=== PATIENT | female | born 1945 | race Caucasian/White ===

== ENCOUNTER → 2022-10-06 09:44 | Outpatient (CLI) | payer OTHER, SELFPAY ==
--- NOTE | ~2022-10-06 | XR_ITS ---
EXAMINATION: XR chest 2V DATE: 10/06/2022 10:03 INDICATION: Chronic cough and shortness of breath post respiratory tract infection 3 months prior TECHNIQUE: frontal and lateral views of the chest were obtained. COMPARISON: None FINDINGS: Mild biapical pleural-parenchymal scarring. Groundglass opacities at the posterior lung bases best ap preciated on the lateral projection. No pleural effusion or pneumothorax. The cardiomediastinal silho uette is normal. Partially 65 degree lumbar levorotoscoliosis mild compensatory thoracic dextroscolio sis. IMPRESSION: 1. Groundglass opacities at the posterior lung bases which could represent atelectasis, mild pulmonar y edema or pneumonia. Reviewed, dictated and finalized at location A. IMPRESSION: 1. Groundglass opacities at the posterior lung bases which could represent atel ectasis, mild pulmonary edema or pneumonia.
== END ==
PROVIDERS: PCP Family Medicine; Visit Provider Family Medicine
DX: R05.3 Chronic cough (principal); R06.02 Shortness of breath; R91.8 Other nonspecific abnormal finding of lung field
CPT/HCPCS: 71046

== ENCOUNTER 2022-10-13 11:06 | Inpatient (IN) | payer OTHER, SELFPAY ==
[2022-10-13] VITALS (52 sets, daily range): BP systolic 87–172; BP diastolic 41–77; PULSE 65–116; RESP 9–28; TEMP 36.4–36.9; O2SAT 97–100; BMI 21.0
--- NOTE | ~2022-10-13 | CT_ITS ---
EXAMINATION: CTA chest PE abdomen pel DATE: 10/13/2022 13:44 INDICATION: Anemia and shortness of breath TECHNIQUE: Computed tomography angiography (CTA) of the chest was performed with 100 mL Omnipaque-350 intravenous contrast timed to evaluate the pulmonary arteries. Subsequent postcontrast images of the abdomen and pelvis are obtained. Coronal maximum intensity projection 3D-reconstructions were create d by the technologist. The dose-length product (DLP) was 381.06 mGy-cm. Automated exposure control an d iterative reconstruction technique were employed. COMPARISON: None. FINDINGS: CTA CHEST: The pulmonary arteries are well-opacified. No pulmonary embolism is identified. There is a 3 mm nodule of the left lung apex. There are dependent groundglass opacities of the lungs. No pleura l effusion or pneumothorax. No pathologically enlarged thoracic lymph nodes are identified. The heart size is normal. There is thoracolumbar levoscoliosis and mild spondylosis. ABDOMEN/PELVIS CT: There is a small sliding hiatal hernia. There is a 12 mm hypoattenuating lesion of the liver dome, likely benign in the absence of known malignancy.. The spleen, pancreas, gallbladder , and adrenal glands are normal. There is a 1.8 cm cyst of the left kidney. The right kidney is unrem arkable. No pathologically enlarged abdominal or pelvic lymph nodes are identified. No free intraperi toneal gas or evidence of bowel obstruction. A moderate volume of colonic stool is present. IMPRESSION: 1. No pulmonary embolus. 2. Dependent groundglass opacities of the lungs which could reflect mild pulmonary edema. 3. No acute findings in the abdomen or pelvis. Reviewed, dictated and finalized at location A. IMPRESSION: 1. No pulmonary embolus. 2. Dependent groundglass opacities of the lungs which could reflect mild pulmon veronica edema. 3. No acute findings in the abdomen or pelvis.
[2022-10-13] MEDS: TUBING, BLOOD PLUM PUMP TUBING 1 EACH XX ×2 (11:46→19:00)
--- NOTE | 2022-10-13 11:58 | ED.RECABL ---
HPI - Recheck/Abnormal Lab/Rx General Chief Complaint: Recheck/Abnormal Lab/Rx Stated Complaint: blood count low/needs transfusion Time Seen by Provider: 10/13/22 11:52 History of Present Illness HPI narrative: Patient is a 77-year-old female with no significant past medical history here with abnormal lab. Patient states that this spring and winter she had 2 separate viral illnesses. Since that time she has had some persistent cough and shortness of breath with occasional blood streaking in her sputum. She notes shortness of breath and fatigue are worse with taking stairs and working out in the yard. She is typically very active doing yard work and going to [employer]. No associated chest pains. She notes that this shortness of breath and fatigue continued longer than she had expected so she went to her primary care doctor a few days ago where lab work was ordered. She additionally had a chest x-ray, stress test and echo ordered. Patient was notified by her primary care doctor's office that an opacification was seen on her chest x-ray and they had reflexed ordering a CT scan for better visualization. The visually noted that she was anemic on her outpatient lab work, unsure of what the number was. Her primary care doctor called her and prompted her to come to the emergency department given her anemia and likely need for transfusion. Patient denies any dark stools or bright red blood per rectum. Her last colonoscopy was in 2013, diverticula were noted but no other findings. She denies any hematuria. Related Data Home Medications Medication Instructions Recorded Confirmed lovastatin 40 mg tablet 40 mg PO QPM 10/13/22 10/13/22 metoprolol succinate 50 mg 50 mg PO QAM 10/13/22 10/13/22 tablet,extended release 24 hr (Toprol XL) Allergies Allergy/AdvReac Type Severity Reaction Status Date / Time Penicillins Allergy Intermediate RASH Verified 10/06/22 09:35 Sulfa (Sulfonamide Allergy Unknown Dizziness Verified 10/06/22 09:35 Antibiotics) Review of Systems Review of Systems: CONSTITUTIONAL: Denies fever, chills, or sweats. Fatigue. EYES: Denies visual changes, redness, or discharge. ENT: Denies rhinorrhea, congestion, sore throat, or otalgia. CARDIOVASCULAR: Denies chest pain, palpitations RESPIRATORY: Denies cough, dyspnea GASTROINTESTINAL: Denies abdominal pain, nausea, vomiting, or diarrhea. No dark stools. GENITOURINARY: Denies dysuria or hematuria. SKIN: Denies rash or itching. MUSCULOSKELETAL: Denies back pain, joint pain, or myalgia. NEUROLOGIC: Denies headache, numbness, or weakness. PSYCHIATRIC: Denies anxiety or depression. [facility] Past Medical History Medical History (Updated 10/13/22 @ 18:50 by Edny Acosta MD) Breast screening declined Post-menopausal Family History Family History Sibling Hypertension Mother Family history of Parkinson's disease Patient's mother is Father Family history of lung cancer Patient's father is Social History Social History Smoking status: Never smoker Second hand tobacco smoke exposure: No Alcohol intake: never Substance use: never Substance use type: does not use Lack of Transportation: No Lack of Food: Never True Current Housing: I Have Housing Concerned About Future Housing: No Difficulty Paying Gas/Electric Bills: No Difficulty Paying for Meds: No Currently Unemployed: No Education: High School Diploma/GED Difficulty w/ Childcare or Family Care: No Spiritual care concerns: No Exam Narrative: GENERAL: Well-appearing, well-nourished, and in no acute distress. HEAD: Normocephalic, atraumatic. EYES: PERRLA and EOMI. Conjunctival pallor. ENT: Nares clear. Mucous membranes moist. NECK: Supple. CHEST: Clear to auscultation. No respiratory distress. HEART: Regular ra
--- NOTE | 2022-10-13 12:32 | ECG_ITS ---
Measurements Intervals [place] Rate: 77 P: 52 [place]: 175 QRS: -13 QRSD: 101 T: 51 QT: 362 QTc: 410 Interpretive Statements SINUS RHYTHM INCOMPLETE RIGHT BUNDLE BRANCH BLOCK [90+ ms QRS DURATION, TERMINAL R IN V1/V2, 40+ ms S IN I/aVL/V4/V5/V6] MODERATE VOLTAGE CRITERIA FOR LVH, CONSIDER NORMAL VARIANT [MEETS CRITERIA IN ONE OF: R(aVL), S(V1), R(V5), R(V5/V6)+S(V1)] NO PREVIOUS ECG AVAILABLE FOR COMPARISON Electronically Signed On 10-13-2022 15:40:35 CDT by Jeannette Abel M.D.
--- NOTE | 2022-10-13 12:35 | IVDEFINITY ---
Prior to administration of IV Definity the patient was educated on the risks and benefits of the imaging enhancing agent including potential adverse side effects. The patient verbalized understanding. Allergies were verified. No exclusion criteria were identified and at least one of the following inclusion criteria were met: 1) physician request, 2) patient technically difficult to image (per the [place] [employer] guidelines of two or more segments not discernable within the apical view), or 3) questionable left ventricular function. ?
[2022-10-13 12:50] LABS: Basophils Percent Auto 0.3 % (0.2-1.2); Eosinophils Percent Auto 0.8 % (0-4.4); Immature Granulocyte Absolute 0.03 K/mm3 (0.00-0.031); Immature Granulocyte Percent A 0.8 % (0-0.5); Immature Platelet Fraction Pct 12.4 % (0.9-11.2); Lymphocytes Absolute Auto 0.59 K/mm3 (0.9-3.2); Mean Corpuscular HGB Conc 27.4 g/dl (32-36); Mean Corpuscular Hemoglobin 25.3 pg (26-34); Mean Corpuscular Volume 92.3 fl (80-100); Monocytes Absolute Auto 0.3 K/mm3 (0.1-0.6); Monocytes Percent Auto 8.7 % (2.6-8.5); Neutrophils Absolute Auto 2.7 K/mm3 (1.3-6.7); Neutrophils Percent Auto 73.4 % (45.5-73.1); Red Blood Count 1.94 M/mm3 (4.2-5.4); Red Cell Distribution Width 19.1 % (11.5-14.5); White Blood Count 3.7 K/mm3 (4.5-10.0)
[2022-10-13 12:58] LABS: Alanine Aminotransferase 18 U/L (6-35); Albumin Level 3.5 g/dL (3.5-5.1); Alkaline Phosphatase 55 U/L (38-126); Anion Gap 0 mmol/L (8-16); Aspartate Amino Transferase 26 U/L (14-36); Bilirubin,Total 0.3 mg/dL (0.2-1.3); Blood Urea Nitrogen 19 mg/dL (7-17); Calcium 8.5 mg/dL (8.4-10.2); Carbon Dioxide 26 mmol/L (22-30); Chloride 106 mmol/L (98-107); Estimated CRCL calculation 39 ml/min; Estimated Glomerular Filt Rate > 60; Glucose 124 mg/dL (65-110); Hematocrit 17.9 % (37.0-47.0); Hemoglobin 4.9 g/dL (12.0-15.0); Magnesium 2.2 mg/dL (1.6-2.3); Sodium 132 mmol/L (137-145)
[2022-10-13 12:59] LABS: Platelet Count Result < 3 k/mm3 (150-375)
[2022-10-13 13:03] LABS: Partial Thromboplastin Time 33.3 SECONDS (22.3-36.8); Prothrombin Time 13.6 Seconds (11.1-14.7)
[2022-10-13 13:09] LABS: NT Pro B Type Natriuretic Pept 386 pg/mL (19.9-100); Troponin I < 0.012 ng/mL (0.000-0.034)
[2022-10-13 13:18] LABS: Hypochromasia 3+ (NORMAL); Microcytosis 3+ (NORMAL); Platelet Estimate Decreased (Adequate)
[2022-10-13 13:19] LABS: Schistocytes Rare (NORMAL); Target Cells 1+ (NORMAL)
--- NOTE | 2022-10-13 14:38 | PC.NURSE ---
Spoke with Castro in [facility] and he states the blood is not ready at this time. 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
[2022-10-13 14:49] LABS: Iron 26 ug/dL (37-170)
[2022-10-13 14:59] LABS: Percent Iron Saturation 6 % (20-50)
[2022-10-13] MEDS: PANTOPRAZOLE SODIUM IV 40 MG VIAL 80 MG IV PUSH (15:24)
--- NOTE | 2022-10-13 16:43 | ADMGEN ---
This patient, Helga Whitley, was admitted to 2 Medical Room 259-01. Patient/family oriented to hospital policies and general routines including ID bracelet, bed and alarms, visiting hours, pain management, procedures, bathroom and other care routines, personal items, smoking policy, room service/diet, and visiting hours. Information on how to activate the Rapid Response Team has been discussed. Patient/Family are encouraged to report perceived risks to care and to ask questions if they do not understand what they are told or what they should do.
--- NOTE | 2022-10-13 16:45 | PM.IMHP ---
H&P: HPI History of Present Illness Date/Time: 10/13/22 16:45 Chief Complaint: Abnormal labs. Narrative: This is a 77-year-old female with hypertension and hyperlipidemia who presented to the emergency department via private vehicle for evaluation of abnormal labs. The patient provides the following history. She had a viral infection in June 2022 and since that time she has had a cough which is intermittently productive. The last couple of months she has developed increasing dyspnea on lesser and lesser exertion to the point where she is getting winded doing activities that she normally does without issue including going to the gym and doing yard work. She is fatigued with these activities which is unusual for her. She had a routine wellness visit with her doctor last week and after laying to him these symptoms, she had lab work and imaging. Chest x-ray showed mild pulmonary edema or pneumonia at the posterior lung bases. Today she was told to go to the ER for evaluation after she was found to have abnormal labs. CBC done today showed a WBC count of 3.7, hemoglobin 4.9, and platelet count of less than 3000. Differential showed 73% neutrophils, 16% lymphocytes, and elevated monocytes. Rare schistocytes were noted. CMP was really unremarkable. With further questioning, she has no history of anemia. On occasion she will no a small amount of pink tinged sputum with her cough but that is rare and she denies overt hemoptysis. She denies nose bleeds, gingival bleeding with brushing of her teeth, hematemesis, melena, hematuria, and hematochezia. She has not noticed any more bruising than usual. Weight has remained stable. No abdominal pain or distension. No exposure to heparin. Review of Systems Review of Systems: Twelve systems were reviewed and are negative except for as per HPI. [facility] Past Medical History Medical History Hyperlipidemia Hypertension Surgical History Surgical History No history of previous surgery Family History Family History Sibling Hypertension Mother Family history of Parkinson's disease Patient's mother is Father Family history of lung cancer Patient's father is Social History Social History (Updated 10/14/22 @ 14:09 by NORTH Gordon Social History: Surrogate medical decision maker: Josh Whitley, spouse. Code status: Full code. Smoking status: Never smoker Second hand tobacco smoke exposure: No Alcohol intake: never Substance use: never Substance use type: does not use Lack of Transportation: No Lack of Food: Never True Current Housing: I Have Housing Concerned About Future Housing: No Difficulty Paying Gas/Electric Bills: No Difficulty Paying for Meds: No Currently Unemployed: No Education: High School Diploma/GED Difficulty w/ Childcare or Family Care: No Spiritual care concerns: No Meds Home Medications and Allergies Home Medications Medication Instructions Recorded Confirmed Type lovastatin 40 mg tablet 40 mg PO QPM 10/13/22 10/13/22 History metoprolol succinate 50 mg 50 mg PO QAM 10/13/22 10/13/22 History tablet,extended release 24 hr (Toprol XL) Allergies Allergy/AdvReac Type Severity Reaction Status Date / Time Penicillins Allergy Intermediate RASH Verified 10/06/22 09:35 Sulfa (Sulfonamide Allergy Unknown Dizziness Verified 10/06/22 09:35 Antibiotics) Vital Signs Vital Signs - 24 hr 10/13/22 11:19 10/13/22 11:47 10/13/22 11:48 Temperature 97.9 F Pulse Rate 93 96 90 Respiratory Rate 18 23 H 24 H Blood Pressure 172/75 H 135/66 Pulse Oximetry 100 100 100 Oxygen Delivery Room Air 10/13/22 13:34 10/13/22 15:08 10/13/22 11:49 Temperature 97.9 F Pulse Rate 116 H 78 86 Respiratory Rate 28 H 2
--- NOTE | 2022-10-13 18:43 | PDONCCN ---
HPI - Date of Consult Date/Time: 10/13/22 18:43 Requesting Physician: Jens Sultana MD Primary Care Provider: Catalino Stout DO - Consult Narrative Reason for consult: Thrombocytopenia and profound anemia Narrative: Helga Whitley is a 77 year old female who has been in good health and functionally quite active had upper respiratory infection about 2 months ago and since then she has been feeling short of breath with some dyspnea on exertion along with some tiredness and fatigue. Her tiredness and fatigue has gotten worse just recently when she went to the primary care physician and the labs were drawn. Labs showed significant thrombocytopenia and anemia. She denies any bleeding and bruising. She denies any fevers and chills. Her last colonoscopy was in 2013. Due to her shortness of breath chest x-ray was done by the primary care physician that showed some opacification without any pneumonia. Labs on admission showed WBC of 3.7, hemoglobin 4.9 and platelet count less than 3000. Differential showed 73% neutrophils and 16% lymphocytes with elevated monocytes. There were rare schistocytes. Creatinine was normal iron was low at 26 with low iron saturation of 6% with. Total bilirubin was normal. Review of Systems - Review of Systems All systems reviewed & are unremarkable except as noted in HPI and [facility] Medical History: Medical History (Last Reviewed 10/06/22 @ 09:39 by Catalino Stout DO) Breast screening declined Post-menopausal Family History: Family History (Last Reviewed 10/06/22 @ 09:39 by Catalino Stout DO) Sibling Hypertension Mother Family history of Parkinson's disease Patient's mother is Father Family history of lung cancer Patient's father is - Social History Social History: Social History (Last Reviewed 10/06/22 @ 09:39 by Catalino Stout DO) Alcohol Use: Alcohol intake: never Substance Use: Substance use: never Substance use type: does not use Others: Spiritual care concerns: No Smoking Status: Smoking status: Never smoker Second hand tobacco smoke exposure: No Social Determinants of Health: Has the Lack of Transportation Kept You From Medical Appointments or From Getting Medications?: No Within the Past 12 Months, Were You Worried Whether Your Food Would Run Out Before You Got Money to Buy More?: Never True What is Your Housing Situation Today?: I Have Housing Are You Worried That in the Next 2 Months, You May Not Have Your Own Housing to Live In?: No Do You Have Trouble Paying Your Heating Or Electricity Bill?: No Do You Have Trouble Paying For Medicines?: No Are You Currently Unemployed and Looking for Work?: No Highest Level of Education Completed: High School Diploma/GED Do You Have Trouble With Childcare or the Care of a Family Member?: No Exam - Vital Signs Vital Signs - 24 hr 10/13/22 11:19 10/13/22 11:47 10/13/22 11:48 Temperature 36.6 C Pulse Rate 93 96 90 Respiratory Rate 18 23 H 24 H Blood Pressure 172/75 H 135/66 Pulse Oximetry 100 100 100 Oxygen Delivery Room Air 10/13/22 13:34 10/13/22 15:08 10/13/22 11:49 Temperature 36.6 C Pulse Rate 116 H 78 86 Respiratory Rate 28 H 24 H 19 Blood Pressure 115/77 117/70 Pulse Oximetry 97 100 100 Oxygen Delivery 10/13/22 12:02 10/13/22 12:17 10/13/22 12:31 Temperature Pulse Rate 83 79 88 Respiratory Rate 15 17 15 Blood Pressure 113/64 Pulse Oximetry 100 100 Oxygen Delivery 10/13/22 12:32 10/13/22 12:45 10/13/22 12:46 Temperature Pulse Rate 84 87 92 Respiratory Rate 19 21 H 22 H Blood Pressure 87/60 L Pulse Oximetry Oxygen Delivery 10/13/22 13:04 10/13/22 13:15 10/13/22 13:49 Temperature Pulse Rate 87 88 78 Respiratory Rate 25 H 17 21 H Blood Pressure Pulse Oximetry 99 100 100 Oxygen Delivery 10/13/22 14:00 09/21
[2022-10-13] MEDS: SODIUM CHLORIDE 0.9% IV 250 ML 30 ML IV CONT (19:00)
[2022-10-14] VITALS (15 sets, daily range): BP systolic 119–147; BP diastolic 53–68; PULSE 52–71; RESP 16–21; TEMP 36.2–37; O2SAT 98–100
[2022-10-14 05:51] LABS: Basophils Percent Auto 0.3 % (0.2-1.2); Eosinophils Absolute Auto 0.1 K/mm3 (0-0.3); Hematocrit 23.5 % (37.0-47.0); Immature Granulocyte Absolute 0.09 K/mm3 (0.00-0.031); Immature Granulocyte Percent A 2.3 % (0-0.5); Immature Platelet Fraction Pct 3.5 % (0.9-11.2); Lymphocytes Absolute Auto 0.65 K/mm3 (0.9-3.2); Lymphocytes Percent Auto 16.4 % (18.3-44.2); Mean Corpuscular HGB Conc 29.4 g/dl (32-36); Mean Corpuscular Hemoglobin 26.1 pg (26-34); Mean Platelet Volume 9.6 fl (7.4-10.4); Monocytes Absolute Auto 0.3 K/mm3 (0.1-0.6); Monocytes Percent Auto 7.8 % (2.6-8.5); Neutrophils Absolute Auto 2.8 K/mm3 (1.3-6.7); Neutrophils Percent Auto 71.2 % (45.5-73.1); Nucleated Red Blood Cells Perc 0.8 % (0.0-0.2); Platelet Count Result 64 k/mm3 (150-375); Red Blood Count 2.64 M/mm3 (4.2-5.4)
[2022-10-14 05:53] LABS: Immature Reticulocyte Fraction 34.9 % (3.0-15.9); Reticulocyte Hemoglobin Conten 21.3 pg (28.2-35.7); Reticulocyte Percent 2.81 % (0.7-4.3); Reticulocytes Absolute 0.08 M/mm3 (0.02-0.1)
[2022-10-14 05:57] LABS: Lactate Dehydrogenase 203 U/L (120-246)
[2022-10-14 06:00] LABS: Alanine Aminotransferase 20 U/L (6-35); Albumin Level 3.4 g/dL (3.5-5.1); Alkaline Phosphatase 58 U/L (38-126); Anion Gap 0 mmol/L (8-16); Aspartate Amino Transferase 34 U/L (14-36); Bilirubin,Total 0.8 mg/dL (0.2-1.3); Blood Urea Nitrogen 15 mg/dL (7-17); Calcium 8.7 mg/dL (8.4-10.2); Carbon Dioxide 27 mmol/L (22-30); Chloride 109 mmol/L (98-107); Estimated CRCL calculation 30 ml/min; Estimated Glomerular Filt Rate 44; Glucose 96 mg/dL (65-110); Magnesium 2.2 mg/dL (1.6-2.3); Potassium 3.8 mmol/L (3.4-5.0); Sodium 136 mmol/L (137-145)
--- NOTE | 2022-10-14 06:21 | PC.NURSE ---
reviewed and agree with all charting and documentation by yarelis agosto
[2022-10-14 06:25] LABS: Hemoglobin 6.9 g/dL (12.0-15.0)
[2022-10-14 06:28] LABS: Anisocytosis 1+ (NORMAL); Hypochromasia 2+ (NORMAL); Platelet Estimate Decreased (Adequate); Schistocytes None Seen (NORMAL)
[2022-10-14 07:04] LABS: Folic Acid 14.4 ng/mL (2.76->20)
[2022-10-14] MEDS: SODIUM CHLORIDE 0.9% IV 250 ML 30 ML IV CONT (07:36)
[2022-10-14] MEDS: methylPREDNISolone SOD SUCC 125 MG VIAL 60 MG IV PUSH ×3 (08:17→16:17)
[2022-10-14] MEDS: IRON SUCROSE COMPLEX 500 MG in SODIUM CHLORIDE 0.9% IV 250 ML 78.57 MG IVPB (08:17)
[2022-10-14] MEDS: METOPROLOL SUCCINATE EXT REL 50 MG TABCR PO (08:17)
[2022-10-14] MEDS: ACETAMINOPHEN/ASPIRIN/CAFFEINE 250-250-65 MG TABLET 1 TABLET PO (08:17)
[2022-10-14 15:46] LABS: Hematocrit 32.9 % (37.0-47.0); Hemoglobin 9.7 g/dL (12.0-15.0)
--- NOTE | 2022-10-14 15:56 | PM.IMPN ---
Progress Note: A&P Assessment and Plan (1) Thrombocytopenia: Code(s): D69.6 - Thrombocytopenia, unspecified Status: Acute (2) Normocytic anemia: Code(s): D64.9 - Anemia, unspecified Status: Acute (3) Hypertension: Code(s): I10 - Essential (primary) hypertension Status: Acute (4) Hyperlipidemia: Code(s): E78.5 - Hyperlipidemia, unspecified Status: Acute Plan The patient presented to the emergency department at the direction of her doctor for evaluation after she was found to have abnormal labs. Labs, imaging, EKG, and all reports were personally reviewed. CBC shows mild neutropenia, profound normocytic anemia, and severe thrombocytopenia. Possible ITP. Transfusion of platelets with adequate rise today to 64 K continue to monitor. She has been started on Solu Medrol IV. Oncology has been consulted. Rare schistocytes visible on peripheral smear. LDH normal. 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 CTA chest abdomen pelvis with no PE dependent ground-glass opacity of the lung which could reflect mild pulmonary edema no other acute findings in abdomen or pelvis Subjective Date/time seen: 10/14/22 15:56 Interval history: Feels better. Denies any new complaints. No shortness of breath or chest pain Review of Systems Review of Systems: All systems reviewed & are unremarkable except as noted in HPI and below Exam Narrative: General: Well-developed female in the semi-Tamez position in bed in no acute distress. HEENT: Normocephalic, atraumatic. PERRL, EOMI. Sclera anicteric. Pale conjunctiva. Oral mucosa moist. Neck: Supple. No lymphadenopathy. Respiratory: Lungs are clear to auscultation bilaterally. Cardiovascular: Regular rate and rhythm with S1-S2. Gastrointestinal: Abdomen is soft, nontender, and nondistended with positive bowel sounds. No organomegaly. Skin: Warm, dry, and pale. Scattered, fine petechiae on the upper and lower extremities. Extremities: No cyanosis, clubbing, or edema. Radial and pedal pulses intact. Neurological: Alert. Cranial nerves 2-12 are grossly intact. No gross focal deficits to casual conversation. Psychiatric: Pleasant and cooperative with normal mood and affect. Judgment and insight intact. Objective Data Vital Signs Vital Signs: Vital Signs - 24 hr 10/13/22 16:00 10/13/22 16:01 10/13/22 16:24 Temperature 97.5 F L Pulse Rate 72 77 69 Respiratory Rate 13 21 H 18 Blood Pressure 126/66 136/61 Pulse Oximetry 100 100 100 Oxygen Delivery 10/13/22 17:24 10/13/22 18:55 10/13/22 19:07 Temperature 97.7 F 97.7 F Pulse Rate 70 70 Respiratory Rate 18 18 Blood Pressure 158/64 H 146/41 H Pulse Oximetry 100 100 Oxygen Delivery Room Air 10/13/22 19:13 10/13/22 20:13 10/13/22 20:40 Temperature 98.1 F 98.0 F 98.2 F Pulse Rate 81 78 72 Respiratory Rate 16 20 20 Blood Pressure 124/54 L 122/51 L 119/55 L Pulse Oximetry 97 98 98 Oxygen Delivery 10/13/22 20:58 10/13/22 21:14 10/13/22 22:14 Temperature 98.2 F 98.0 F 98.4 F Pulse Rate 72 65 65 Respiratory Rate 20 18 20 Blood Pressure 119/55 L 126/66 133/57 L Pulse Oximetry 98 99 99 Oxygen Delivery 10/13/22 23:14 10/13/22 23:53 10/14/22 00:02 Temperature 98.2 F 98.1 F 98.1 F Pulse Rate 70 71 71 Respiratory Rate 20 20 20 Blood Pressure 117/53 L 121/54 L 121/54 L Pulse Oximetry 98 99 99 Oxygen Delivery 10/14/22 00:15 10/14/22 01:15 10/14/22 02:15 Temperature 98.1 F 98.0 F 98.0 F Pulse Rate 70 56 L 53 L Respiratory Rate 20 20 20 Blood Pressure 147/67 H 126/63 135/59 L Pulse Oximetry 99 98 98 Oxygen Delivery 10/14/22 02:55 10/14/22 06:00 10/13/22 22:22 Temperature 97.5 F L 97.4 F L 98.0 F Pulse Rate 57 L 57 L 78 Respiratory Rate 20 21 H 20 Blood Pressure 136/53 L 129/55 L 122/51 L Pulse Oximetry 99 100 98 Oxygen Delivery 10/14/22 07:31 10/14/22 07:48
--- NOTE | 2022-10-14 18:23 | WPDONCPN ---
Progress Note: A/P - Additional Plan Normocytic anemia and thrombocytopenia. Landon test is negative. LDH was normal. Haptoglobin is pending. Reticulocyte count came back slightly elevated. Platelet antibody for ITP pending. Patient had good response with IVIG and steroids. Will continue IV Solu-Medrol 60 mg every 8 hours until platelet count is over [id number] and then we will switch her to oral prednisone 60 mg b.i.d. with 10 mg taper every 3rd day as an outpatient. Patient is status post iron infusion. She can start oral iron 325 mg b.i.d. on discharge. She will follow-up in the office. No plan for bone marrow biopsy at this time. - Time Spent With Patient Total time spent is greater than 50% in coordination of care (as documented) at patient's floor/unit and/or counseling patient: 15 - 25 minutes Subjective Interval history: Anemia and thrombocytopenia Review of Systems - Review of Systems Patient is feeling better after blood transfusion. She denies any bleeding including melena hematochezia. No fevers and chills. No other new complaints. Exam Vital signs: Temp Pulse Resp BP Pulse Ox O2 Del Method 36.7 C 52 L 16 119/59 L 99 Room Air 10/14/22 14:25 10/14/22 14:25 10/14/22 14:25 10/14/22 14:25 10/14/22 14:25 10/14/22 08:35 Narrative: Lungs are clear to auscultation bilaterally Cardiovascular regular rate rhythm no murmurs Abdomen soft nontender nondistended bowel sounds are positive Extremities no edema PN: Objective Data - Labs CBC & Chem 7: 10/14/22 15:30 10/14/22 05:21 Labs: Laboratory Results - last 24 hr 10/13/22 10/13/22 10/14/22 12:39 13:56 05:21 WBC 4.0 L RBC 2.64 L Hgb 6.9 L* Hct 23.5 L MCV 89.0 MCH 26.1 MCHC 29.4 L RDW 18.0 H Plt Count 64 L D MPV 9.6 Immature Gran % (Auto) 2.3 H Neut % (Auto) 71.2 Lymph % (Auto) 16.4 L [place] % (Auto) 7.8 Eos % (Auto) 2.0 Baso % (Auto) 0.3 Lymph # (Auto) 0.65 L [place] # (Auto) 0.3 Eos # (Auto) 0.1 Baso # (Auto) 0.0 Abs Immat Gran (auto) 0.09 H Absolute Neuts (auto) 2.8 Absolute Nucleated RBC 0.0 Nucleated RBC % 0.8 H Platelet Estimate Decreased % Immature Plt Fraction 3.5 Hypochromasia 2+ Anisocytosis 1+ Schistocytes None seen Absolute Retic 0.08 Percent Retic 2.81 Immature Retic Fraction 34.9 H Retic Hgb Content 21.3 L Sodium 136 L Potassium 3.8 Chloride 109 H Carbon Dioxide 27 Anion Gap 0 L BUN 15 Creatinine 1.20 H Estim Creat Clear Calc 30 Estimated GFR 44 L Glucose 96 Calcium 8.7 Magnesium 2.2 Total Bilirubin 0.8 AST 34 ALT 20 Alkaline Phosphatase 58 Lactate Dehydrogenase 203 Total Protein 7.0 Albumin 3.4 L Vitamin B12 949.0 H Folate 14.4 TSH (Reflex) 3.920 Blood Type O Positive Antibody Screen Negative BRIAN, IgG Interpret Negative BRIAN, Poly Interpret Negative BRIAN, Complement Interp Not Performed Crossmatch See Detail 10/14/22 15:30 WBC RBC Hgb 9.7 L Hct 32.9 L MCV MCH MCHC RDW Plt Count MPV Immature Gran % (Auto) Neut % (Auto) Lymph % (Auto) [place] % (Auto) Eos % (Auto) Baso % (Auto) Lymph # (Auto) [place] # (Auto) Eos # (Auto) Baso # (Auto) Abs Immat Gran (auto) Absolute Neuts (auto) Absolute Nucleated RBC Nucleated RBC % Platelet Estimate % Immature Plt Fraction Hypochromasia Anisocytosis Schistocytes Absolute Retic Percent Retic Immature Retic Fraction Retic Hgb Content Sodium Potassium Chloride Carbon Dioxide Anion Gap BUN Creatinine Estim Creat Clear Calc Estimated GFR Glucose Calcium Magnesium Total Bilirubin AST ALT Alkaline Phosphatase Lactate Dehydrogenase Total Protein Albumin Vitamin B12 Folate TSH (Reflex) Blood Type Antibody Screen BRIAN, IgG Interpret BRIAN, Poly Interpret BRIAN, Complement Interp
[2022-10-15 05:38] VITALS: BP 119/62; PULSE 71; RESP 16; TEMP 36.6; O2SAT 97
[2022-10-15 07:26] LABS: Basophils Percent Auto 0.1 % (0.2-1.2); Hematocrit 27.8 % (37.0-47.0); Hemoglobin 8.5 g/dL (12.0-15.0); Immature Granulocyte Absolute 0.14 K/mm3 (0.00-0.031); Immature Granulocyte Percent A 1.9 % (0-0.5); Immature Platelet Fraction Pct 6.7 % (0.9-11.2); Lymphocytes Absolute Auto 0.54 K/mm3 (0.9-3.2); Lymphocytes Percent Auto 7.3 % (18.3-44.2); Mean Corpuscular HGB Conc 30.6 g/dl (32-36); Mean Corpuscular Hemoglobin 28.1 pg (26-34); Mean Corpuscular Volume 91.7 fl (80-100); Monocytes Absolute Auto 0.5 K/mm3 (0.1-0.6); Monocytes Percent Auto 7.3 % (2.6-8.5); Neutrophils Absolute Auto 6.2 K/mm3 (1.3-6.7); Neutrophils Percent Auto 83.4 % (45.5-73.1); Nucleated Red Blood Cells Absolute Auto 0.1 K/mm3 (0.0-0.012); Nucleated Red Blood Cells Perc 1.2 % (0.0-0.2); Platelet Count Result 36 k/mm3 (150-375); Red Blood Count 3.03 M/mm3 (4.2-5.4); Red Cell Distribution Width 18.3 % (11.5-14.5); White Blood Count 7.4 K/mm3 (4.5-10.0)
[2022-10-15 07:31] LABS: Alanine Aminotransferase 30 U/L (6-35); Albumin Level 3.2 g/dL (3.5-5.1); Alkaline Phosphatase 55 U/L (38-126); Anion Gap 2 mmol/L (8-16); Aspartate Amino Transferase 49 U/L (14-36); Bilirubin,Total 0.9 mg/dL (0.2-1.3); Blood Urea Nitrogen 17 mg/dL (7-17); Calcium 8.7 mg/dL (8.4-10.2); Carbon Dioxide 25 mmol/L (22-30); Chloride 106 mmol/L (98-107); Estimated CRCL calculation 44 ml/min; Estimated Glomerular Filt Rate > 60; Glucose 118 mg/dL (65-110); Magnesium 2.1 mg/dL (1.6-2.3); Potassium 4.1 mmol/L (3.4-5.0); Sodium 133 mmol/L (137-145)
[2022-10-15 08:30] LABS: Phosphorus 3.8 mg/dL (2.5-4.5)
[2022-10-15] MEDS: IRON SUCROSE COMPLEX 500 MG in SODIUM CHLORIDE 0.9% IV 250 ML 78.57 MG IVPB (08:37)
[2022-10-15 08:38] VITALS: PULSE 70
[2022-10-15] MEDS: methylPREDNISolone SOD SUCC 125 MG VIAL 60 MG IV PUSH ×3 (08:38→16:46)
[2022-10-15] MEDS: METOPROLOL SUCCINATE EXT REL 50 MG TABCR PO (08:38)
[2022-10-15 13:34] VITALS: BP 135/62; PULSE 66; RESP 18; TEMP 36.4; O2SAT 99
--- NOTE | 2022-10-15 16:54 | PM.IMPN ---
Progress Note: A&P Assessment and Plan (1) Thrombocytopenia: Code(s): D69.6 - Thrombocytopenia, unspecified Status: Acute (2) Normocytic anemia: Code(s): D64.9 - Anemia, unspecified Status: Acute (3) Hypertension: Code(s): I10 - Essential (primary) hypertension Status: Acute (4) Hyperlipidemia: Code(s): E78.5 - Hyperlipidemia, unspecified Status: Acute Plan continue with current medications patient gibson received blood and platelet transfusion since admission he had an overnight trauma in the hemoglobin and platelet count Follow-up left 5th electrolytes closely Follow-up closely as per Oncology Patient is receiving IV iron daily Patient is also receiving IV steroids Encourage ambulation DC planning tomorrow with outpatient follow-up if cleared by oncology ? Patient seen and examined at bedside during my morning rounds ? Collaborated with patient's nurse at the bedside in detail and addressed all concerns ? Labs, electrolytes, radiology, investigations and test results reviewed ? Consult notes on the case reviewed and appreciated ? Spoke with patient/family at the bedside and answered all the questions that they had Repeat labs in a.m. Electrolyte replacement as per protocol. Patient will be monitored very closely on the floor. Further recommendations as per the hospital course. Time Spent With Patient Time with patient: 25 - 35 minutes Subjective Date/time seen: 10/15/22 16:54 Interval history: 10/14/2022: The patient presented to the emergency department at the direction of her doctor for evaluation after she was found to have abnormal labs. Labs, imaging, EKG, and all reports were personally reviewed. CBC shows mild neutropenia, profound normocytic anemia, and severe thrombocytopenia.? Possible ITP.? Transfusion of platelets with adequate rise today to 64 K continue to monitor.? She has been started on Solu Medrol IV.? Oncology has been consulted.? Rare schistocytes visible on peripheral smear.? LDH normal.? 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 CTA chest abdomen pelvis with no PE dependent ground-glass opacity of the lung which could reflect mild pulmonary edema no other acute findings in abdomen or pelvis. 10/15/2022: Patient seen and evaluated at bedside today. She is feeling a little better with the blood and platelet transfusions yet still feels tired and fatigued. Platelet count dropped overnight from 64-36 and a hemoglobin drop from 9.7-8.5. She wants to go home, but given her severe anemia and thrombocytopenia, oncology wants to continue to follow up her blood levels closely. She is encouraged to ambulate at bedside. Review of Systems Review of Systems: Twelve systems were reviewed and are negative except for as per HPI. All systems reviewed & are unremarkable except as noted in HPI and below Exam Narrative: PHYSICAL EXAMINATION: Vital signs: Please see the chart. Head/eyes: Atraumatic, EOMI, PERRLA. ENT: Moist mucous membranes, nasal passages clear. Neck: Supple, full range of motion, trachea midline. CVS: S1 + S2 + 0, regular rate and rhythm, no murmurs Respiratory: Bilaterally decreased air entry in both lung sandoval, mild B/L crackles, symmetric expansion of chest, no distress Abdomen: Soft, non-tender, bowel sounds +ve, no organomegaly. Extremities: No clubbing, no cyanosis, no edema, no calf tenderness Musculoskeletal: Moves all, decreased range of motion, no muscle spasms Skin: Warm, dry, no jaundice, no cyanosis Neurological: Awake, alert, oriented x 3, cranial nerves II-XII intact, no focal neurological deficits. Psychiatric: Normal mood, non suicidal. Objective Data Vital Signs Vital Signs: Vital Signs - 24 hr 10/14/22 20:37 10/15/22 05:38 10/15/22 08:38 Temperature 36.6 C 36.6 C Pulse Rate 55 L 71 70 Respiratory Rate 20 16 Blood Pressure 145
[2022-10-15 20:00] VITALS: PULSE 58; RESP 16; O2SAT 96
[2022-10-15 20:14] VITALS: BP 122/62; PULSE 58; RESP 16; TEMP 36.8; O2SAT 96
[2022-10-16 04:25] VITALS: BP 145/65; PULSE 46; RESP 20; TEMP 36.5; O2SAT 98
[2022-10-16 08:24] LABS: Hematocrit 28.5 % (37.0-47.0); Hemoglobin 8.4 g/dL (12.0-15.0); Immature Platelet Fraction Pct 10.9 % (0.9-11.2); Mean Corpuscular HGB Conc 29.5 g/dl (32-36); Mean Corpuscular Hemoglobin 27.2 pg (26-34); Mean Corpuscular Volume 92.2 fl (80-100); Red Blood Count 3.09 M/mm3 (4.2-5.4); Red Cell Distribution Width 17.9 % (11.5-14.5); White Blood Count 7.6 K/mm3 (4.5-10.0)
[2022-10-16 08:33] VITALS: PULSE 78
[2022-10-16 08:33] LABS: Platelet Count Result 15 k/mm3 (150-375)
[2022-10-16] MEDS: methylPREDNISolone SOD SUCC 125 MG VIAL 60 MG IV PUSH (08:33)
[2022-10-16] MEDS: METOPROLOL SUCCINATE EXT REL 50 MG TABCR PO (08:33)
[2022-10-16 08:34] LABS: Anion Gap 2 mmol/L (8-16); Blood Urea Nitrogen 16 mg/dL (7-17); Calcium 8.9 mg/dL (8.4-10.2); Carbon Dioxide 31 mmol/L (22-30); Chloride 107 mmol/L (98-107); Estimated CRCL calculation 44 ml/min; Estimated Glomerular Filt Rate > 60; Glucose 110 mg/dL (65-110); Potassium 4.1 mmol/L (3.4-5.0); Sodium 140 mmol/L (137-145)
--- NOTE | 2022-10-16 11:20 | PM.IMPN ---
Progress Note: A&P Assessment and Plan (1) Thrombocytopenia: Code(s): D69.6 - Thrombocytopenia, unspecified Status: Acute (2) Normocytic anemia: Code(s): D64.9 - Anemia, unspecified Status: Acute (3) Hypertension: Code(s): I10 - Essential (primary) hypertension Status: Acute (4) Hyperlipidemia: Code(s): E78.5 - Hyperlipidemia, unspecified Status: Acute Plan continue with current medications her hemoglobin remained stable overnight but platelet count dropped to 15,000 another platelet transfusion ordered today patient has been ordered 3 packed RBCs and 3 platelet transfusions since admission monitor blood counts very closely Follow-up closely as per Oncology Patient is receiving IV iron and IV steroid which she is tolerating well further management recommendations as per Hematology-Oncology Encourage ambulation DC planning tomorrow with outpatient follow-up if WBC and platelet count remained stable and she is cleared by oncology patient needs close follow-up with Oncology as an outpatient upon discharge ? Patient seen and examined at bedside during my morning rounds ? Collaborated with patient's nurse at the bedside in detail and addressed all concerns ? Labs, electrolytes, radiology, investigations and test results reviewed ? Consult notes on the case reviewed and appreciated ? Spoke with patient/family at the bedside and answered all the questions that they had Repeat labs in a.m. Electrolyte replacement as per protocol. Patient will be monitored very closely on the floor. Further recommendations as per the hospital course. Subjective Date/time seen: 10/16/22 11:20 Interval history: 10/14/2022: The patient presented to the emergency department at the direction of her doctor for evaluation after she was found to have abnormal labs. Labs, imaging, EKG, and all reports were personally reviewed. CBC shows mild neutropenia, profound normocytic anemia, and severe thrombocytopenia.? Possible ITP.? Transfusion of platelets with adequate rise today to 64 K continue to monitor.? She has been started on Solu Medrol IV.? Oncology has been consulted.? Rare schistocytes visible on peripheral smear.? LDH normal.? 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 CTA chest abdomen pelvis with no PE dependent ground-glass opacity of the lung which could reflect mild pulmonary edema no other acute findings in abdomen or pelvis. 10/15/2022: Patient seen and evaluated at bedside today. She is feeling a little better with the blood and platelet transfusions yet still feels tired and fatigued. Platelet count dropped overnight from 64-36 and a hemoglobin drop from 9.7-8.5. She wants to go home, but given her severe anemia and thrombocytopenia, oncology wants to continue to follow up her blood levels closely. She is encouraged to ambulate at bedside. 10/16/2022: Patient sitting at bedside along with her partner during my morning rounds. She is concerned about bone marrow biopsy and possible bone marrow transplant and has many questions after she googled these items. I encouraged her to relax and speak with the command center officer regarding further management plan. She is currently on IV steroids and IV iron and tolerating them both well. Hemoglobin is stable today at 8.4. Platelet count dipped down to 15,000 hence I ordered another platelet transfusion. patient has been ordered three packed RBCs and three platelet transfusions so far. Patient to be evaluated by oncologist in a.m. I am signing off. Patient's medical care will be taken over by my covering hospitalist attending, Dr. Jens Mcmahon, in am. Review of Systems Review of Systems: Twelve systems were reviewed and are negative except for as per HPI. All systems reviewed & are unremarkable except as noted in HPI and below Exam Narrative: ABBY
[2022-10-16] MEDS: methylPREDNISolone SOD SUCC 125 MG VIAL 80 MG IV PUSH ×2 (13:27→21:32)
[2022-10-16 14:00] VITALS: BP 130/59; PULSE 65; RESP 18; TEMP 36.9; O2SAT 97
[2022-10-16 21:48] VITALS: BP 157/63; PULSE 51; RESP 16; TEMP 36.7; O2SAT 96
[2022-10-17] MEDS: methylPREDNISolone SOD SUCC 125 MG VIAL 80 MG IV PUSH ×3 (05:17→20:48)
[2022-10-17 05:42] VITALS: PULSE 51
[2022-10-17] MEDS: METOPROLOL SUCCINATE EXT REL 50 MG TABCR PO (05:42)
[2022-10-17 06:00] VITALS: BP 178/67; PULSE 52; RESP 16; TEMP 36.6; O2SAT 97
[2022-10-17 06:09] LABS: Anion Gap 3 mmol/L (8-16); Blood Urea Nitrogen 17 mg/dL (7-17); Calcium 8.9 mg/dL (8.4-10.2); Carbon Dioxide 29 mmol/L (22-30); Chloride 107 mmol/L (98-107); Estimated CRCL calculation 44 ml/min; Estimated Glomerular Filt Rate > 60; Glucose 137 mg/dL (65-110); Sodium 139 mmol/L (137-145)
[2022-10-17 06:10] LABS: Hematocrit 25.8 % (37.0-47.0); Hemoglobin 8.3 g/dL (12.0-15.0); Immature Platelet Fraction Pct 12.8 % (0.9-11.2); Mean Corpuscular HGB Conc 32.2 g/dl (32-36); Mean Corpuscular Hemoglobin 31.2 pg (26-34); Red Blood Count 2.66 M/mm3 (4.2-5.4); Red Cell Distribution Width 20.9 % (11.5-14.5); White Blood Count 4.7 K/mm3 (4.5-10.0)
[2022-10-17 06:16] LABS: Platelet Count Result 9 k/mm3 (150-375)
--- NOTE | 2022-10-17 12:21 | WPDONCPN ---
Progress Note: A/P - Additional Plan Autoimmune thrombocytopenia and normocytic anemia. Platelet antibodies are pending. Landon test is negative. Platelet count has dropped after the initial rise which was likely secondary to the platelet transfusion. I have increase the Solu-Medrol dose to 80 mg q.8 hours. Will give her another round of IVIG. We will not transfuse any platelets unless she is symptomatic or platelet drop below 5000. Patient will stay in the hospital until platelet improved. - Time Spent With Patient Total time spent is greater than 50% in coordination of care (as documented) at patient's floor/unit and/or counseling patient: 15 - 25 minutes Subjective Interval history: Anemia and thrombocytopenia Review of Systems - Review of Systems Patient is sitting comfortably and denies any bleeding and bruising. She feels better and stronger. No fevers and chills. No other new complaints. Exam Narrative: Lungs are clear to auscultation bilaterally Cardiovascular regular rate rhythm no murmurs Abdomen soft nontender nondistended Extremities no edema PN: Objective Data - Labs CBC & Chem 7: 10/17/22 05:09 10/17/22 05:09 Labs: Laboratory Results - last 24 hr 10/17/22 05:09 WBC 4.7 RBC 2.66 L Hgb 8.3 L Hct 25.8 L MCV 97.0 D MCH 31.2 D MCHC 32.2 RDW 20.9 H Plt Count 9 L* MPV TNP % Immature Plt Fraction 12.8 H Sodium 139 Potassium 4.0 Chloride 107 Carbon Dioxide 29 Anion Gap 3 L BUN 17 Creatinine 0.80 Estim Creat Clear Calc 44 Estimated GFR > 60 Glucose 137 H Calcium 8.9
[2022-10-17 14:55] VITALS: BP 165/70; PULSE 62; RESP 14; TEMP 36.6; O2SAT 99
--- NOTE | 2022-10-17 16:55 | PM.IMPN ---
Progress Note: A&P Assessment and Plan (1) Thrombocytopenia: Code(s): D69.6 - Thrombocytopenia, unspecified Status: Acute (2) Normocytic anemia: Code(s): D64.9 - Anemia, unspecified Status: Acute (3) Hypertension: Code(s): I10 - Essential (primary) hypertension Status: Acute (4) Hyperlipidemia: Code(s): E78.5 - Hyperlipidemia, unspecified Status: Acute Plan The patient presented to the emergency department at the direction of her doctor for evaluation after she was found to have abnormal labs. Labs, imaging, EKG, and all reports were personally reviewed. CBC shows mild neutropenia, profound normocytic anemia, and severe thrombocytopenia. Possible ITP. Transfusion of platelets with adequate rise today to 64 K continue to monitor. She has been started on Solu Medrol IV. Oncology has been consulted. Rare schistocytes visible on peripheral smear. LDH normal. 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 CTA chest abdomen pelvis with no PE dependent ground-glass opacity of the lung which could reflect mild pulmonary edema no other acute findings in abdomen or pelvis IVIG for immune thrombocytopenia heme Onc following Continue to monitor platelet count. Active bleeding hold off any platelet transfusion unless suggested by Oncology Subjective Date/time seen: 10/17/22 16:55 Interval history: Labs were reviewed. No overnight events. No bleeding issues. No fever chills. Blood pressure a bit high. Was anxious about her platelet count. Review of Systems Review of Systems: All systems reviewed & are unremarkable except as noted in HPI and below Exam Narrative: Head/eyes: Atraumatic, EOMI, PERRLA. ENT: Moist mucous membranes, nasal passages clear. Neck: Supple, full range of motion, trachea midline. CVS: S1 + S2 + 0, regular rate and rhythm, no murmurs Respiratory: Bilaterally decreased air entry in both lung sandoval, mild B/L crackles, symmetric expansion of chest, no distress Abdomen: Soft, non-tender, bowel sounds +ve, no organomegaly. Extremities: No clubbing, no cyanosis, no edema, no calf tenderness Musculoskeletal: Moves all, decreased range of motion, no muscle spasms Skin: Warm, dry, no jaundice, no cyanosis Neurological: Awake, alert, oriented x 3, cranial nerves II-XII intact, no focal neurological deficits. Psychiatric: Normal mood, non suicidal. Objective Data Vital Signs Vital Signs: Vital Signs - 24 hr 10/16/22 21:48 10/17/22 05:42 10/17/22 06:00 Temperature 98.1 F 97.8 F Pulse Rate 51 L 51 L 52 L Respiratory Rate 16 16 Blood Pressure 157/63 H 178/67 H Pulse Oximetry 96 97 Oxygen Delivery 10/17/22 08:00 10/17/22 14:55 Temperature 97.8 F Pulse Rate 62 Respiratory Rate 14 Blood Pressure 165/70 H Pulse Oximetry 99 Oxygen Delivery Room Air Intake/Output Intake/Output: Intake & Output 10/14/22 10/15/22 10/16/22 10/17/22 23:59 23:59 23:59 23:59 Intake Total 2968 1755 1030 0 Balance 2968 1755 1030 0 Meds/Results Medications: Active Medications Generic Name Dose Route Start Last Admin Trade Name Freq PRN Reason Stop Dose Admin Immune Globulin 54 gm/ N/A 540 mls @ 16.2 mls/hr 10/17/22 14:00 10/17/22 14:40 IVPB 10/18/22 23:19 16.2 mls/hr ONCE ONE Administration Methylprednisolone Sodium Succinate 80 mg 10/16/22 14:00 10/17/22 14:39 Methylprednisolone Sod Succ 125 Mg Vial IV PUSH 80 mg Q8HR HIRAM Administration Metoprolol Succinate 50 mg 10/14/22 09:00 10/17/22 05:42 Metoprolol Succinate Ext Rel 50 Mg Tabcr PO 50 mg QAM HIRAM Administration Radiology Results: ITS Impressions Chest/Abdomen/Pelvis CTA 10/13/22 13:51 IMPRESSION: 1. No pulmonary embolus. 2. Dependent groundglass opacities of the lungs which could reflect mild pulmonary edema. 3. No acute findings in the abdomen or pelvis. Labs Labs: Sarithaato
[2022-10-17 20:08] VITALS: BP 161/60; PULSE 60; RESP 18; TEMP 37.1; O2SAT 97
[2022-10-18] VITALS (7 sets, daily range): BP systolic 149–168; BP diastolic 62–94; PULSE 55–65; RESP 14–18; TEMP 36.3–36.7; O2SAT 96–100
[2022-10-18 05:18] LABS: Hematocrit 29.9 % (37.0-47.0); Hemoglobin 8.8 g/dL (12.0-15.0); Immature Platelet Fraction Pct 8.2 % (0.9-11.2); Mean Corpuscular HGB Conc 29.4 g/dl (32-36); Mean Corpuscular Hemoglobin 27.9 pg (26-34); Mean Corpuscular Volume 94.9 fl (80-100); Red Blood Count 3.15 M/mm3 (4.2-5.4); Red Cell Distribution Width 20.3 % (11.5-14.5); White Blood Count 3.8 K/mm3 (4.5-10.0)
[2022-10-18 05:21] LABS: Platelet Count Result 14 k/mm3 (150-375)
--- NOTE | 2022-10-18 05:27 | PC.NURSE ---
On 10/17/22-10/18/22, the license pending RN, Cristian Nielsen, provided care and completed [employer] documentation on this patient. I have reviewed the RN's documentation and agree with the findings.
[2022-10-18 05:28] LABS: Anion Gap 6 mmol/L (8-16); Blood Urea Nitrogen 22 mg/dL (7-17); Carbon Dioxide 27 mmol/L (22-30); Chloride 109 mmol/L (98-107); Estimated CRCL calculation 39 ml/min; Estimated Glomerular Filt Rate > 60; Glucose 138 mg/dL (65-110); Magnesium 2.2 mg/dL (1.6-2.3); Sodium 142 mmol/L (137-145)
[2022-10-18] MEDS: methylPREDNISolone SOD SUCC 125 MG VIAL 80 MG IV PUSH ×3 (06:22→21:10)
[2022-10-18] MEDS: METOPROLOL SUCCINATE EXT REL 50 MG TABCR PO (09:52)
--- NOTE | 2022-10-18 13:15 | PM.IMPN ---
Progress Note: A&P Assessment and Plan (1) Thrombocytopenia: Code(s): D69.6 - Thrombocytopenia, unspecified Status: Acute (2) Normocytic anemia: Code(s): D64.9 - Anemia, unspecified Status: Acute (3) Hypertension: Code(s): I10 - Essential (primary) hypertension Status: Acute (4) Hyperlipidemia: Code(s): E78.5 - Hyperlipidemia, unspecified Status: Acute Plan The patient presented to the emergency department at the direction of her doctor for evaluation after she was found to have abnormal labs. Labs, imaging, EKG, and all reports were personally reviewed. CBC shows mild neutropenia, profound normocytic anemia, and severe thrombocytopenia. Rare schistocytes visible on the peripheral smear. 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 Transfusion of platelets with adequate rise on day of admission to 64 K which quickly dwindle down in next few days. She has been started on Solu Medrol IV which she continues to get. She is also getting IVIG and avoiding any further transfusion of platelets on SCDs having active bleeding or platelet drops below 5000. LDH normal. 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 CTA chest abdomen pelvis with no PE dependent ground-glass opacity of the lung which could reflect mild pulmonary edema no other acute findings in abdomen or pelvis Platelet count continues to improve slowly now. Await further monitoring of platelet before planned for discharge. Subjective Date/time seen: 10/18/22 13:15 Interval history: No overnight events. Patient feels well. No new issues. No bleeding problem. Labs were reviewed. Discussed with the patient and family. Review of Systems Review of Systems: All systems reviewed & are unremarkable except as noted in HPI and below Exam Narrative: Head/eyes: Atraumatic, EOMI, PERRLA. ENT: Moist mucous membranes, nasal passages clear. Neck: Supple, full range of motion, trachea midline. CVS: S1 + S2 + 0, regular rate and rhythm, no murmurs Respiratory: Bilaterally decreased air entry in both lung sandoval, symmetric expansion of chest, no distress Abdomen: Soft, non-tender, bowel sounds +ve, no organomegaly. Extremities: No clubbing, no cyanosis, no edema, no calf tenderness Musculoskeletal: Moves all, decreased range of motion, no muscle spasms Skin: Warm, dry, no jaundice, no cyanosis Neurological: Awake, alert, oriented x 3, cranial nerves II-XII intact, no focal neurological deficits. Psychiatric: Normal mood, non suicidal. Objective Data Vital Signs Vital Signs: Vital Signs - 24 hr 10/17/22 14:55 10/17/22 20:08 10/18/22 05:24 Temperature 97.8 F 98.7 F 97.7 F Pulse Rate 62 60 55 L Respiratory Rate 14 18 17 Blood Pressure 165/70 H 161/60 H 161/94 H Pulse Oximetry 99 97 98 Oxygen Delivery 10/18/22 09:24 10/18/22 09:51 10/18/22 09:52 Temperature Pulse Rate 65 62 62 Respiratory Rate 14 Blood Pressure 155/62 H Pulse Oximetry 96 100 Oxygen Delivery Room Air 10/18/22 10:44 Temperature Pulse Rate Respiratory Rate Blood Pressure Pulse Oximetry Oxygen Delivery Room Air Intake/Output Intake/Output: Intake & Output 10/15/22 10/16/22 10/17/22 10/18/22 23:59 23:59 23:59 23:59 Intake Total 1755 1030 1230 390 Output Total 100 Balance 1755 1030 1230 290 Meds/Results Medications: Active Medications Generic Name Dose Route Start Last Admin Trade Name Freq PRN Reason Stop Dose Admin Immune Globulin 54 gm/ N/A 540 mls @ 16.2 mls/hr 10/17/22 14:00 10/17/22 21:27 IVPB 10/18/22 23:19 Infused ONCE ONE Infusion Methylprednisolone Sodium Succinate 80 mg 10/16/22 14:00 10/18/22 06:22 Methylprednisolone Sod Succ 125 Mg Vial IV PUSH 80 mg Q8HR HIRAM Administration Metoprolol Succinate 50 mg 10/14/22 09:00 10/18/22 09:52 Metoprolol Succinate Ext Rel 50 Mg Tabcr
--- NOTE | 2022-10-18 14:41 | PC.NURSE ---
On 10/18/22, the student, [Enrique Alvarez], provided care and completed [facility] documentation on this patient. I have reviewed the student's documentation and agree with the findings.
[2022-10-18 18:57] LABS: Haptoglobin 156 mg/dL (43-212)
--- NOTE | 2022-10-19 04:48 | PC.NURSE ---
On 10/18/22-10/19/22 the license pending RN, Cristian Nielsen, provided care [facility] I have reviewed the RN's documentation and agree with the findings.
[2022-10-19] MEDS: methylPREDNISolone SOD SUCC 125 MG VIAL 80 MG IV PUSH ×3 (05:36→20:39)
[2022-10-19 06:00] VITALS: BP 178/63; PULSE 48; RESP 18; TEMP 36.4; O2SAT 98
[2022-10-19 06:00] LABS: Hematocrit 27.7 % (37.0-47.0); Hemoglobin 8.7 g/dL (12.0-15.0); Immature Platelet Fraction Pct 6.9 % (0.9-11.2); Mean Corpuscular HGB Conc 31.4 g/dl (32-36); Mean Corpuscular Hemoglobin 30.1 pg (26-34); Mean Corpuscular Volume 95.8 fl (80-100); Red Blood Count 2.89 M/mm3 (4.2-5.4); White Blood Count 4.5 K/mm3 (4.5-10.0)
[2022-10-19 06:11] LABS: Sodium 137 mmol/L (137-145)
[2022-10-19 06:14] LABS: Platelet Count Result 14 k/mm3 (150-375)
[2022-10-19 06:50] LABS: Anion Gap 3 mmol/L (8-16); Blood Urea Nitrogen 19 mg/dL (7-17); Calcium 8.8 mg/dL (8.4-10.2); Carbon Dioxide 26 mmol/L (22-30); Chloride 108 mmol/L (98-107); Estimated CRCL calculation 49 ml/min; Estimated Glomerular Filt Rate > 60; Glucose 138 mg/dL (65-110); Magnesium 2.2 mg/dL (1.6-2.3)
[2022-10-19 08:50] VITALS: PULSE 79
[2022-10-19] MEDS: METOPROLOL SUCCINATE EXT REL 50 MG TABCR PO (08:50)
--- NOTE | 2022-10-19 13:54 | PM.IMPN ---
Progress Note: A&P Assessment and Plan (1) Thrombocytopenia: Code(s): D69.6 - Thrombocytopenia, unspecified Status: Acute Assessment and Plan: Patient count is 14 today. No acute Bleeding. Continue current treatment. (2) Normocytic anemia: Code(s): D64.9 - Anemia, unspecified Status: Acute Assessment and Plan: Stable on current medication. Continue current treatment. (3) Hypertension: Code(s): I10 - Essential (primary) hypertension Status: Acute Assessment and Plan: Patient will patient slightly high. Will add hydralazine to be used as needed. (4) Hyperlipidemia: Code(s): E78.5 - Hyperlipidemia, unspecified Status: Acute Assessment and Plan: Stable on current medication. Continue current treatment. Plan The patient presented to the emergency department at the direction of her doctor for evaluation after she was found to have abnormal labs. Labs, imaging, EKG, and all reports were personally reviewed. CBC shows mild neutropenia, profound normocytic anemia, and severe thrombocytopenia. Rare schistocytes visible on the peripheral smear. 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 Transfusion of platelets with adequate rise on day of admission to 64 K which quickly dwindle down in next few days. She has been started on Solu Medrol IV which she continues to get. She is also getting IVIG and avoiding any further transfusion of platelets on SCDs having active bleeding or platelet drops below 5000. LDH normal. 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 CTA chest abdomen pelvis with no PE dependent ground-glass opacity of the lung which could reflect mild pulmonary edema no other acute findings in abdomen or pelvis Platelet count continues to improve slowly now. Await further monitoring of platelet before planned for discharge. Subjective Date/time seen: 10/19/22 13:54 Interval history: Patient was seen during the morning rounds today. Blood pressure slightly high. No sob or chest pain. No overnight events. Patient feels well. No new issues. No bleeding problem. Labs were reviewed. Discussed with the patient and family. Review of Systems Review of Systems: Twelve systems were reviewed and are negative except for as per HPI. All systems reviewed & are unremarkable except as noted in HPI and below Exam Narrative: Head/eyes: Atraumatic, EOMI, PERRLA. ENT: Moist mucous membranes, nasal passages clear. Neck: Supple, full range of motion, trachea midline. CVS: S1 + S2 + 0, regular rate and rhythm, no murmurs Respiratory: Bilaterally decreased air entry in both lung sandoval, symmetric expansion of chest, no distress Abdomen: Soft, non-tender, bowel sounds +ve, no organomegaly. Extremities: No clubbing, no cyanosis, no edema, no calf tenderness Musculoskeletal: Moves all, decreased range of motion, no muscle spasms Skin: Warm, dry, no jaundice, no cyanosis Neurological: Awake, alert, oriented x 3, cranial nerves II-XII intact, no focal neurological deficits. Psychiatric: Normal mood, non suicidal. Objective Data Vital Signs Vital Signs: Vital Signs - 24 hr 10/18/22 14:20 10/18/22 21:01 10/18/22 21:11 Temperature 36.7 C 36.3 C L Pulse Rate 60 62 57 L Respiratory Rate 16 18 Blood Pressure 149/64 H 168/71 H Pulse Oximetry 97 97 97 Oxygen Delivery Room Air 10/18/22 21:00 10/19/22 06:00 10/19/22 08:50 Temperature 36.4 C Pulse Rate 48 L 79 Respiratory Rate 18 Blood Pressure 178/63 H Pulse Oximetry 98 Oxygen Delivery Room Air Intake/Output Intake/Output: Intake & Output 10/16/22 10/17/22 10/18/22 10/19/22 23:59 23:59 23:59 23:59 Intake Total 1030 1230 1350 240 Output Total 100 Balance 1030 1230 1250 240 Meds/Results Medications: Active Medications Generic Name Dose Route Start Last Admin Trade Na
[2022-10-19 14:00] VITALS: BP 166/73; PULSE 60; RESP 16; TEMP 37.1; O2SAT 97
[2022-10-19] MEDS: hydrALAZINE 12.5 MG TABLET PO ×2 (18:17→20:39)
[2022-10-19 20:08] VITALS: BP 178/75; PULSE 62; RESP 18; TEMP 36.7; O2SAT 96
[2022-10-20] VITALS (7 sets, daily range): BP systolic 129–188; BP diastolic 64–83; PULSE 53–99; RESP 18; TEMP 36–36.7; O2SAT 97–99
[2022-10-20] MEDS: methylPREDNISolone SOD SUCC 125 MG VIAL 80 MG IV PUSH ×3 (05:21→22:20)
--- NOTE | 2022-10-20 05:36 | PC.NURSE ---
On 10/19/22-10/20/22 the license pending RN, Cristian Nielsen, [facility] care [facility]. I have reviewed the RN's documentation and agree with the findings.
[2022-10-20 06:44] LABS: Basophils Percent Auto 0.2 % (0.2-1.2); Hematocrit 29.4 % (37.0-47.0); Hemoglobin 9.8 g/dL (12.0-15.0); Immature Granulocyte Absolute 0.26 K/mm3 (0.00-0.031); Immature Platelet Fraction Pct 6.3 % (0.9-11.2); Lymphocytes Absolute Auto 0.34 K/mm3 (0.9-3.2); Lymphocytes Percent Auto 6.5 % (18.3-44.2); Mean Corpuscular HGB Conc 33.3 g/dl (32-36); Mean Corpuscular Hemoglobin 32.2 pg (26-34); Mean Corpuscular Volume 96.7 fl (80-100); Monocytes Absolute Auto 0.3 K/mm3 (0.1-0.6); Monocytes Percent Auto 5.3 % (2.6-8.5); Neutrophils Absolute Auto 4.4 K/mm3 (1.3-6.7); Nucleated Red Blood Cells Absolute Auto 0.1 K/mm3 (0.0-0.012); Nucleated Red Blood Cells Perc 1.3 % (0.0-0.2); Red Blood Count 3.04 M/mm3 (4.2-5.4); Red Cell Distribution Width 23.6 % (11.5-14.5); White Blood Count 5.3 K/mm3 (4.5-10.0)
[2022-10-20 07:03] LABS: Platelet Count Result 15 k/mm3 (150-375)
[2022-10-20 07:29] LABS: Anisocytosis 3+ (NORMAL); Platelet Estimate Decreased (Adequate); Schistocytes None Seen (NORMAL)
--- NOTE | 2022-10-20 08:06 | PM.IMPN ---
Progress Note: A&P Assessment and Plan (1) Thrombocytopenia: Code(s): D69.6 - Thrombocytopenia, unspecified Status: Acute Assessment and Plan: Patient count is 14 today. No acute Bleeding. Continue current treatment. (2) Normocytic anemia: Code(s): D64.9 - Anemia, unspecified Status: Acute Assessment and Plan: Stable on current medication. Continue current treatment. (3) Hypertension: Code(s): I10 - Essential (primary) hypertension Status: Acute Assessment and Plan: Patient will patient slightly high. Will add hydralazine to be used as needed. (4) Hyperlipidemia: Code(s): E78.5 - Hyperlipidemia, unspecified Status: Acute Assessment and Plan: Stable on current medication. Continue current treatment. 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 Labs, imaging, EKG, and all reports were personally reviewed. CBC shows mild neutropenia, profound normocytic anemia, and severe thrombocytopenia. Rare schistocytes visible on the peripheral smear. 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 Transfusion of platelets with adequate rise on day of admission to 64 K which quickly dwindle down in next few days. LDH normal. 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 CTA chest abdomen pelvis with no PE dependent ground-glass opacity of the lung which could reflect mild pulmonary edema no other acute findings in abdomen or pelvis Platelet count continues to improve slowly now. Hold transfusion platelet unless platelet below 5000 Consult heme oncologist, follow recommendations. Subjective Date/time seen: 10/20/22 08:06 Interval history: I saw and examined patient today, patient feels comfortable, denies nausea vomiting abdomen pain, dysuria, hematuria, bright blood per rectum, melena. I reviewed the labs.. Exam Narrative: Head/eyes: Atraumatic, EOMI, PERRLA. ENT: Moist mucous membranes, nasal passages clear. Neck: Supple, full range of motion, trachea midline. CVS: S1 + S2 + 0, regular rate and rhythm, no murmurs Respiratory: Bilaterally decreased air entry in both lung sandoval, symmetric expansion of chest, no distress Abdomen: Soft, non-tender, bowel sounds +ve, no organomegaly. Extremities: No clubbing, no cyanosis, no edema, no calf tenderness Musculoskeletal: Moves all, decreased range of motion, no muscle spasms Skin: Warm, dry, no jaundice, no cyanosis Neurological: Awake, alert, oriented x 3, cranial nerves II-XII intact, no focal neurological deficits. Psychiatric: Normal mood Objective Data Vital Signs Vital Signs: Vital Signs - 24 hr 10/19/22 08:50 10/19/22 14:00 10/19/22 20:08 Temperature 98.7 F 98.1 F Pulse Rate 79 60 62 Respiratory Rate 16 18 Blood Pressure 166/73 H 178/75 H Pulse Oximetry 97 96 Oxygen Delivery 10/19/22 20:35 10/20/22 06:00 Temperature 97.8 F Pulse Rate 53 L Respiratory Rate 18 Blood Pressure 188/74 H Pulse Oximetry 99 Oxygen Delivery Room Air Intake/Output Intake/Output: Intake & Output 10/17/22 10/18/22 10/19/22 10/20/22 23:59 23:59 23:59 23:59 Intake Total 1230 1350 930 Output Total 100 3 Balance 1230 1250 930 -3 Meds/Results Medications: Active Medications Generic Name Dose Route Start Last Admin Trade Name Freq PRN Reason Stop Dose Admin Hydralazine HCl 12.5 mg 10/19/22 17:00 10/19/22 20:39 Hydralazine 12.5 Mg Tablet PO 12.5 mg QID [facility] Administration Methylprednisolone Sodium Succinate 80 mg 10/16/22 14:00 10/20/22 05:21 Methylprednisolone Sod Succ 125 Mg Vial IV PUSH 80 mg Q8HR HIRAM Administration Metoprolol Succinate 50 mg 10/14/22 09:00 10/19/22 08:50 Metoprolol Succinate Ext Rel 50 Mg Tabcr PO 50 mg QAM [facility]
[2022-10-20] MEDS: hydrALAZINE 12.5 MG TABLET PO ×3 (08:39→22:20)
[2022-10-20] MEDS: METOPROLOL SUCCINATE EXT REL 50 MG TABCR PO (08:39)
--- NOTE | 2022-10-20 11:26 | PCNWS ---
Weekly nutritional screen. Patient is tolerating current diet with adequate intake. No weight loss reported. No nutritional needs at this time.
--- NOTE | 2022-10-20 13:42 | PC.NURSE ---
On 10/20/22, the student, [Abida Roper], provided care and completed [facility] documentation on this patient. I have reviewed the student's documentation and agree with the findings.
[2022-10-21] VITALS (7 sets, daily range): BP systolic 149–189; BP diastolic 62–88; PULSE 55–63; RESP 18–20; TEMP 36.1–36.4; O2SAT 97–99
[2022-10-21] MEDS: methylPREDNISolone SOD SUCC 125 MG VIAL 80 MG IV PUSH ×3 (05:19→22:44)
[2022-10-21 05:27] LABS: Basophils Percent Auto 0.2 % (0.2-1.2); Hematocrit 30.9 % (37.0-47.0); Hemoglobin 9.8 g/dL (12.0-15.0); Immature Granulocyte Absolute 0.26 K/mm3 (0.00-0.031); Immature Granulocyte Percent A 5.6 % (0-0.5); Immature Platelet Fraction Pct 6.9 % (0.9-11.2); Lymphocytes Absolute Auto 0.23 K/mm3 (0.9-3.2); Lymphocytes Percent Auto 4.9 % (18.3-44.2); Mean Corpuscular HGB Conc 31.7 g/dl (32-36); Mean Corpuscular Hemoglobin 29.8 pg (26-34); Mean Corpuscular Volume 93.9 fl (80-100); Monocytes Absolute Auto 0.2 K/mm3 (0.1-0.6); Monocytes Percent Auto 4.7 % (2.6-8.5); Neutrophils Percent Auto 84.6 % (45.5-73.1); Nucleated Red Blood Cells Perc 0.4 % (0.0-0.2); Red Blood Count 3.29 M/mm3 (4.2-5.4); Red Cell Distribution Width 22.5 % (11.5-14.5); White Blood Count 4.7 K/mm3 (4.5-10.0)
[2022-10-21 06:41] LABS: Platelet Count Result 15 k/mm3 (150-375)
--- NOTE | 2022-10-21 07:01 | PC.NURSE ---
Called Dr. Coronel approx. [phone] to notify of critical lab. No response from cell #. Will notify janae PATTON.
[2022-10-21] MEDS: METOPROLOL SUCCINATE EXT REL 50 MG TABCR PO (08:05)
[2022-10-21] MEDS: hydrALAZINE 12.5 MG TABLET PO ×3 (08:05→22:44)
--- NOTE | 2022-10-21 08:18 | PM.IMPN ---
Progress Note: A&P Assessment and Plan (1) Thrombocytopenia: Code(s): D69.6 - Thrombocytopenia, unspecified Status: Acute Assessment and Plan: Patient count is 14 today. No acute Bleeding. Continue current treatment. (2) Normocytic anemia: Code(s): D64.9 - Anemia, unspecified Status: Acute Assessment and Plan: Stable on current medication. Continue current treatment. f/u iron panel and ferritin, (3) Hypertension: Code(s): I10 - Essential (primary) hypertension Status: Acute Assessment and Plan: Patient will patient slightly high. Will add hydralazine to be used as needed. (4) Hyperlipidemia: Code(s): E78.5 - Hyperlipidemia, unspecified Status: Acute Assessment and Plan: Stable on current medication. Continue current treatment. 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 Labs, imaging, EKG, and all reports were personally reviewed. CBC shows mild neutropenia, profound normocytic anemia, and severe thrombocytopenia. Rare schistocytes visible on the peripheral smear. 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 Transfusion of platelets with adequate rise on day of admission to 64 K which quickly dwindle down in next few days. LDH normal. 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 CTA chest abdomen pelvis with no PE dependent ground-glass opacity of the lung which could reflect mild pulmonary edema no other acute findings in abdomen or pelvis Platelet count continues to improve slowly now. Hold transfusion platelet unless platelet below 5000 Hemoglobin and platelets have no change since yesterday, hemoglobin 9.8, platelet is 15,000 Consult heme oncologist, follow recommendations, may need to modify the treatments Subjective Date/time seen: 10/21/22 08:18 Interval history: I saw and examined patient today, patient feels comfortable, denies nausea vomiting abdomen pain, dysuria, hematuria, bright blood per rectum, melena. I reviewed the labs. Hemoglobin and platelets have no change from yesterday Exam Narrative: Head/eyes: Atraumatic, EOMI, PERRLA. ENT: Moist mucous membranes, nasal passages clear. Neck: Supple, full range of motion, trachea midline. CVS: S1 + S2 + 0, regular rate and rhythm, no murmurs Respiratory: Bilaterally decreased air entry in both lung sandoval, symmetric expansion of chest, no distress Abdomen: Soft, non-tender, bowel sounds +ve, no organomegaly. Extremities: No clubbing, no cyanosis, no edema, no calf tenderness Musculoskeletal: Moves all, decreased range of motion, no muscle spasms Skin: Warm, dry, no jaundice, no cyanosis Neurological: Awake, alert, oriented x 3, cranial nerves II-XII intact, no focal neurological deficits. Psychiatric: Normal mood Objective Data Vital Signs Vital Signs: Vital Signs - 24 hr 10/20/22 08:37 10/20/22 08:39 10/20/22 13:04 Temperature 98.1 F Pulse Rate 60 60 Respiratory Rate 18 Blood Pressure 184/79 H 129/64 Pulse Oximetry 97 Oxygen Delivery 10/20/22 14:00 10/20/22 17:09 10/20/22 21:08 Temperature 97.5 F L 96.8 F L Pulse Rate 99 66 Respiratory Rate 18 18 Blood Pressure 131/65 183/83 H 173/75 H Pulse Oximetry 99 98 Oxygen Delivery 10/20/22 22:00 10/21/22 04:18 10/21/22 08:04 Temperature 97 F L Pulse Rate 59 L 55 L Respiratory Rate 18 Blood Pressure 189/88 H 186/80 H Pulse Oximetry 99 Oxygen Delivery Room Air 10/21/22 08:05 Temperature Pulse Rate 55 L Respiratory Rate Blood Pressure Pulse Oximetry Oxygen Delivery Intake/Output Intake/Output: Intake & Output 10/18/22 10/19/22 10/20/22 10/21/22 23:59 23:59 23:59 23:59 Intake Total 8335 314 4006 390 Output Total 100 3 Balance 1608 227 9998 3
[2022-10-21 13:42] LABS: Iron 146 ug/dL (37-170)
[2022-10-21 13:53] LABS: Percent Iron Saturation 41 % (20-50)
--- NOTE | 2022-10-21 18:42 | WPDONCPN ---
Progress Note: A/P (1) Immune thrombocytopenia Code(s): D69.3 - Immune thrombocytopenic purpura Status: Acute Assessment and plan: Patient with severe ITP. Clinical picture is consistent with ITP although platelet antibodies are pending. Patient has been administered two rounds of IVIG and has been on solumedrol 80mg IV q 8 hrs. Platelets increased to 15K and now stabilized at 15K. This is steroid and IVIg refractory ITP. The next management step is administration of Rituximab weekly dose for 4 weeks. However, Rituximab can only be given in oncology infusion clinic. We need to transition patient to oral steroid in order for her to be discharged. I recommend patient transitioned to Dexamethasone 40mg PO daily with GI ulcer prophylaxis with PPI. patient should be observed for atleast 48 hrs on oral dexamethasone to document continued stability of platelet counts. I recommend changing to dexamethasone on 10/22/22 and then observe platelet count for few days. I will continue to follow the patient while she is inpatient. - Time Spent With Patient Total time spent is greater than 50% in coordination of care (as documented) at patient's floor/unit and/or counseling patient: Greater than 35 minutes (I spent 40 min in counseling and management plan to patient and her ) Subjective Interval history: REASON FOR VISIT: SEVERE THROMBOCYTOPENIA- STEROID AND IVIG REFRACTORY HPI: Patient seen today in inpatient wards. at bedside. No overnight events. Denies spontaneous bleeding or bruising. Very appreciative of care provided in the hospital by inpatient hospitalist team. Denies chest pain, dyspnea, cough or hemoptysis. No hematochezia or melena. No hematuria. Review of Systems - Review of Systems patient denies any spontaneous bleeding or bruising. She reports mild fatigue. No falls, dizziness, lightheadedness. No chest pain, dyspnea, cough or hemoptysis. Denies abdominal pain, n/v/d. no hematochezia or melena. no hematuria. URI has completely resolved with no sore throat and phlegm production. Denies visual changes. no rash. No lymphadenopathy. All systems reviewed & are unremarkable except as noted in HPI and bel - Constitutional Reports fatigue Exam Vital signs: Temp Pulse Resp BP Pulse Ox O2 Del Method 36.4 C 62 18 186/77 H 98 Room Air 10/21/22 14:00 10/21/22 14:00 10/21/22 14:00 10/21/22 16:52 10/21/22 14:00 10/21/22 08:00 - Constitutional no acute distress - Routine HEENT Exam Head: Present: atraumatic, normal inspection Eye: Present: EOMI, normal appearance, PERRL ENT: Present: mucous membranes moist - Routine Neck Exam Present: full ROM - Routine Cardiovascular Exam Cardiovascular: Present: RRR, S1, S2 - Routine Abdominal Exam Present: normal bowel sounds Comments: Non tender, non distended PN: Objective Data - Labs CBC & Chem 7: 10/21/22 05:11 10/19/22 04:59 Labs: Laboratory Results - last 24 hr 10/20/22 10/21/22 06:20 05:11 WBC 4.7 RBC 3.29 L Hgb 9.8 L Hct 30.9 L MCV 93.9 MCH 29.8 D MCHC 31.7 L RDW 22.5 H Plt Count 15 L* MPV TNP Immature Gran % (Auto) 5.6 H Neut % (Auto) 84.6 H Lymph % (Auto) 4.9 L [place] % (Auto) 4.7 Eos % (Auto) 0.0 Baso % (Auto) 0.2 Lymph # (Auto) 0.23 L [place] # (Auto) 0.2 Eos # (Auto) 0.0 Baso # (Auto) 0.0 Abs Immat Gran (auto) 0.26 H Absolute Neuts (auto) 4.0 Absolute Nucleated RBC 0.0 Nucleated RBC % 0.4 H % Immature Plt Fraction 6.9 Iron 146 TIBC 356 % Saturation 41 Ferritin 924.00 H
[2022-10-22 03:02] VITALS: BP 190/78; PULSE 52; RESP 18; TEMP 36.6; O2SAT 97
[2022-10-22 06:15] LABS: Basophils Percent Auto 0.2 % (0.2-1.2); Hematocrit 32.2 % (37.0-47.0); Hemoglobin 9.9 g/dL (12.0-15.0); Immature Granulocyte Absolute 0.15 K/mm3 (0.00-0.031); Immature Platelet Fraction Pct 6.7 % (0.9-11.2); Lymphocytes Absolute Auto 0.25 K/mm3 (0.9-3.2); Lymphocytes Percent Auto 5.1 % (18.3-44.2); Mean Corpuscular HGB Conc 30.7 g/dl (32-36); Mean Corpuscular Hemoglobin 28.5 pg (26-34); Mean Corpuscular Volume 92.8 fl (80-100); Mean Platelet Volume 8.9 fl (7.4-10.4); Monocytes Absolute Auto 0.2 K/mm3 (0.1-0.6); Monocytes Percent Auto 4.6 % (2.6-8.5); Neutrophils Absolute Auto 4.3 K/mm3 (1.3-6.7); Neutrophils Percent Auto 87.1 % (45.5-73.1); Red Blood Count 3.47 M/mm3 (4.2-5.4); Red Cell Distribution Width 22.4 % (11.5-14.5)
[2022-10-22] MEDS: methylPREDNISolone SOD SUCC 125 MG VIAL 80 MG IV PUSH (06:27)
[2022-10-22 06:34] VITALS: BP 182/82
[2022-10-22 06:48] LABS: Platelet Count Result 17 k/mm3 (150-375)
[2022-10-22 06:49] LABS: Anisocytosis 2+ (NORMAL); Platelet Estimate Decreased (Adequate); Schistocytes None Seen (NORMAL)
[2022-10-22 08:04] VITALS: PULSE 56
[2022-10-22] MEDS: hydrALAZINE 12.5 MG TABLET PO ×2 (08:04→20:27)
[2022-10-22] MEDS: METOPROLOL SUCCINATE EXT REL 50 MG TABCR PO (08:04)
--- NOTE | 2022-10-22 08:04 | PM.IMPN ---
Progress Note: A&P Assessment and Plan (1) Thrombocytopenia: Code(s): D69.6 - Thrombocytopenia, unspecified Status: Acute Assessment and Plan: . (2) Normocytic anemia: Code(s): D64.9 - Anemia, unspecified Status: Acute (3) Hypertension: Code(s): I10 - Essential (primary) hypertension Status: Acute Assessment and Plan: Patient will patient slightly high. Will add hydralazine to be used as needed. (4) Hyperlipidemia: Code(s): E78.5 - Hyperlipidemia, unspecified Status: Acute Assessment and Plan: Stable on current medication. Continue current treatment. 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 Labs, imaging, EKG, and all reports were personally reviewed. CBC shows mild neutropenia, profound normocytic anemia, and severe thrombocytopenia. Rare schistocytes visible on the peripheral smear. 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 Transfusion of platelets with adequate rise on day of admission to 64 K which quickly dwindle down in next few days. LDH normal. 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 CTA chest abdomen pelvis with no PE dependent ground-glass opacity of the lung which could reflect mild pulmonary edema no other acute findings in abdomen or pelvis Platelet count continues to improve slowly now. 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 The next management step is administration of Rituximab weekly dose for 4 weeks. However, Rituximab can only be given in oncology infusion clinic. We need to transition patient to oral steroid in order for her to be discharged. Heme oncologist recommends patient transitioned to Dexamethasone 40mg PO daily with GI ulcer prophylaxis with PPI. patient should be observed for atleast 48 hrs on oral dexamethasone to document continued stability of platelet counts, changing to dexamethasone on 10/22/22 and then observe platelet count for few days. Appreciate heme oncologist consultation For Subjective Date/time seen: 10/22/22 08:04 I saw exam patient today, patient has no complaints, denies nausea vomiting hemoptysis, bloody urine, I reviewed lab, hemoglobin and platelet are trending a Interval history: Documentation of this patient encounter should include: Reason for the encounter Relevant history REASON FOR VISIT: SEVERE THROMBOCYTOPENIA- STEROID AND IVIG REFRACTORY HPI: Patient seen today in inpatient wards. at bedside. No overnight events. Denies spontaneous bleeding or bruising. Very appreciative of care provided in the hospital by inpatient hospitalist team. Denies chest pain, dyspnea, cough or hemoptysis. No hematochezia or melena. No hematuria. Exam Narrative: Head/eyes: Atraumatic, EOMI, PERRLA. ENT: Moist mucous membranes, nasal passages clear. Neck: Supple, full range of motion, trachea midline. CVS: S1 + S2 + 0, regular rate and rhythm, no murmurs Respiratory: Bilaterally decreased air entry in both lung sandoval, symmetric expansion of chest, no distress Abdomen: Soft, non-tender, bowel sounds +ve, no organomegaly. Extremities: No clubbing, no cyanosis, no edema, no calf tenderness Musculoskeletal: Moves all, decreased range of motion, no muscle spasms Skin: Warm, dry, no jaundice, no cyanosis Neurological: Awake, alert, oriented x 3, cranial nerves II-XII intact, no focal neurological deficits. Psychiatric: Normal mood Objective Data Vital Signs Vital Signs: Vital Signs - 24 hr 10/21/22 08:05 10/21/22 13:13 10/21/22 14:00 Temperature 97.6 F Pulse Rate 55 L 62 Respiratory Rate 18 Blood Pressure 149/68 H 158/62 H Pulse Oximetr
[2022-10-22] MEDS: PANTOPRAZOLE 40 MG TABLET PO (08:51)
[2022-10-22 13:27] VITALS: BP 145/62; PULSE 72; RESP 18; O2SAT 98
--- NOTE | 2022-10-22 13:34 | WPDONCPN ---
Progress Note: A/P (1) Immune thrombocytopenia Code(s): D69.3 - Immune thrombocytopenic purpura Status: Acute Assessment and plan: Patient with severe ITP. Clinical picture is consistent with ITP although platelet antibodies are pending. Patient has been administered two rounds of IVIG and has been on solumedrol 80mg IV q 8 hrs. This is steroid and IVIg refractory ITP with lack of normalization or increase of platelets more than 50K. The next management step is administration of Rituximab weekly dose for 4 weeks. However, Rituximab can only be given in oncology infusion clinic. We need to transition patient to oral steroid in order for her to be discharged. I recommend patient transitioned to Dexamethasone 40mg PO daily with GI ulcer prophylaxis with PPI. patient should be observed for atleast 48 hrs on oral dexamethasone to document continued stability of platelet counts. I talked to patient's hospital attending Dr. Talbot today. Solumedrol is now transitioned to Dexamethasone 40mg with first dose to be given 10/23/22. platelets are 17K and mildly improved from 15K from yesterday. She needs to be observed on dexamethasone oral treatment. Will continue to follow. - Time Spent With Patient Total time spent is greater than 50% in coordination of care (as documented) at patient's floor/unit and/or counseling patient: 25 - 35 minutes Subjective Interval history: REASON FOR VISIT: SEVERE THROMBOCYTOPENIA- STEROID AND IVIG REFRACTORY HPI: Patient seen today in inpatient wards. at bedside. No overnight events. Denies spontaneous bleeding or bruising. Very appreciative of care provided in the hospital by inpatient hospitalist team. Denies chest pain, dyspnea, cough or hemoptysis. No hematochezia or melena. No hematuria. Review of Systems - Review of Systems Patient feels well. She is in good mood as platelets have increased to 17K today. she slept well and no overnight events. Denies spontaneous bleeding. No falls. Denies chest pain, dyspnea, cough or hemoptysis. Denies abdominal pain, n/v/d. No hematochezia or melena. no hematuria. Exam - Constitutional no acute distress - Routine HEENT Exam Head: Present: atraumatic, normal inspection - Routine Neck Exam Present: full ROM - Routine Cardiovascular Exam Cardiovascular: Present: RRR, S1, S2 - Routine Abdominal Exam Present: normal bowel sounds PN: Objective Data - Labs CBC & Chem 7: 10/22/22 05:44 10/19/22 04:59 Labs: Laboratory Results - last 24 hr 10/20/22 10/22/22 06:20 05:44 WBC 5.0 RBC 3.47 L Hgb 9.9 L Hct 32.2 L MCV 92.8 MCH 28.5 MCHC 30.7 L RDW 22.4 H Plt Count 17 L* MPV 8.9 Immature Gran % (Auto) 3.0 H Neut % (Auto) 87.1 H Lymph % (Auto) 5.1 L [place] % (Auto) 4.6 Eos % (Auto) 0.0 Baso % (Auto) 0.2 Lymph # (Auto) 0.25 L [place] # (Auto) 0.2 Eos # (Auto) 0.0 Baso # (Auto) 0.0 Abs Immat Gran (auto) 0.15 H Absolute Neuts (auto) 4.3 Absolute Nucleated RBC 0.0 Nucleated RBC % 0.0 Platelet Estimate Decreased % Immature Plt Fraction 6.7 Anisocytosis 2+ Schistocytes None seen Iron 146 TIBC 356 % Saturation 41 Ferritin 924.00 H
[2022-10-22 16:37] VITALS: BP 124/65
[2022-10-22 19:53] VITALS: BP 155/74; PULSE 76; RESP 16; TEMP 36.9; O2SAT 98
[2022-10-23 04:55] VITALS: BP 156/71; PULSE 63; RESP 16; TEMP 36.2; O2SAT 98
[2022-10-23 07:00] LABS: Basophils Percent Auto 0.5 % (0.2-1.2); Eosinophils Percent Auto 0.5 % (0-4.4); Hematocrit 33.7 % (37.0-47.0); Hemoglobin 10.2 g/dL (12.0-15.0); Immature Granulocyte Absolute 0.19 K/mm3 (0.00-0.031); Immature Granulocyte Percent A 4.3 % (0-0.5); Immature Platelet Fraction Pct 4.4 % (0.9-11.2); Lymphocytes Absolute Auto 0.66 K/mm3 (0.9-3.2); Lymphocytes Percent Auto 14.9 % (18.3-44.2); Mean Corpuscular HGB Conc 30.3 g/dl (32-36); Mean Corpuscular Hemoglobin 28.1 pg (26-34); Mean Corpuscular Volume 92.8 fl (80-100); Monocytes Absolute Auto 0.4 K/mm3 (0.1-0.6); Neutrophils Absolute Auto 3.1 K/mm3 (1.3-6.7); Neutrophils Percent Auto 70.8 % (45.5-73.1); Red Blood Count 3.63 M/mm3 (4.2-5.4); Red Cell Distribution Width 22.5 % (11.5-14.5); White Blood Count 4.4 K/mm3 (4.5-10.0)
[2022-10-23 07:56] LABS: Anisocytosis 2+ (NORMAL); Hypochromasia 1+ (NORMAL); Platelet Count Result 17 k/mm3 (150-375); Platelet Estimate Decreased (Adequate)
[2022-10-23 07:57] LABS: Schistocytes None Seen (NORMAL)
[2022-10-23 08:50] VITALS: PULSE 68
[2022-10-23] MEDS: METOPROLOL SUCCINATE EXT REL 50 MG TABCR PO (08:50)
[2022-10-23] MEDS: DEXAMETHASONE 4 MG TABLET 40 MG PO (08:50)
[2022-10-23] MEDS: hydrALAZINE 12.5 MG TABLET PO (08:50)
[2022-10-23] MEDS: PANTOPRAZOLE 40 MG TABLET PO (08:50)
[2022-10-23 12:09] VITALS: BP 117/68
[2022-10-23 14:00] VITALS: BP 113/61; PULSE 79; RESP 18; TEMP 36.6; O2SAT 99
--- NOTE | 2022-10-23 14:51 | P.PNONC_ITS ---
Progress Note: A/P (1) Immune thrombocytopenia Code(s): D69.3 - Immune thrombocytopenic purpura Status: Acute Assessment and plan: Patient with severe ITP. Clinical picture is consistent with ITP although platelet antibodies are pending. Patient has been administered two rounds of IVIG and has been on solumedrol 80mg IV q 8 hrs. This is steroid and IVIg refractory ITP with lack of normalization or increase of platelets more than 50K. The next management step is administration of Rituximab weekly dose for 4 weeks. However, Rituximab can only be given in oncology infusion clinic. We need to transition patient to oral steroid in order for her to be discharged. I recommended patient transitioned to Dexamethasone 40mg PO daily with GI ulcer prophylaxis with PPI. patient should be observed for at least 48 hrs while on oral dexamethasone to document continued stability of platelet counts. I talked to patient's hospital attending Dr. Talbot today. Solumedrol is now transitioned to Dexamethasone 40mg with first dose to be given today 10/23/22. platelets are 17K. She is also on protonix for GI ulcer prophylaxis. Will continue to follow. - Time Spent With Patient Total time spent is greater than 50% in coordination of care (as documented) at patient's floor/unit and/or counseling patient: 25 - 35 minutes Subjective Interval history: REASON FOR VISIT: SEVERE THROMBOCYTOPENIA- STEROID AND IVIG REFRACTORY HPI: Patient seen today in inpatient wards. at bedside. No overnight events. Denies spontaneous bleeding or bruising. Continues to be grateful of care provided in the hospital by inpatient hospitalist team. Denies chest pain, dyspnea, cough or hemoptysis. No hematochezia or melena. No hematuria. Review of Systems - Review of Systems Patient feels well and slept well without any overnight events. Denies spontaneous bleeding. No falls. Denies chest pain, dyspnea, cough or hemoptysis. Denies abdominal pain, n/v/d. No hematochezia or melena. no hematuria. Exam - Constitutional no acute distress - Routine HEENT Exam Head: Present: atraumatic, normal inspection - Routine Neck Exam Present: full ROM - Routine Cardiovascular Exam Cardiovascular: Present: RRR, S1, S2 - Routine Abdominal Exam Present: normal bowel sounds PN: Objective Data - Labs CBC & Chem 7: 10/23/22 06:49 10/19/22 04:59 Labs: Laboratory Results - last 24 hr 10/23/22 06:49 WBC 4.4 L RBC 3.63 L Hgb 10.2 L Hct 33.7 L MCV 92.8 MCH 28.1 MCHC 30.3 L RDW 22.5 H Plt Count 17 L* MPV TNP Immature Gran % (Auto) 4.3 H Neut % (Auto) 70.8 Lymph % (Auto) 14.9 L [place] % (Auto) 9.0 H Eos % (Auto) 0.5 Baso % (Auto) 0.5 Lymph # (Auto) 0.66 L [place] # (Auto) 0.4 Eos # (Auto) 0.0 Baso # (Auto) 0.0 Abs Immat Gran (auto) 0.19 H Absolute Neuts (auto) 3.1 Absolute Nucleated RBC 0.0 Nucleated RBC % 0.0 Platelet Estimate Decreased % Immature Plt Fraction 4.4 Hypochromasia 1+ Anisocytosis 2+ Schistocytes None seen
--- NOTE | 2022-10-23 15:59 | PM.IMPN ---
Progress Note: A&P Assessment and Plan (1) Thrombocytopenia: Code(s): D69.6 - Thrombocytopenia, unspecified Status: Acute Assessment and Plan: . (2) Normocytic anemia: Code(s): D64.9 - Anemia, unspecified Status: Acute (3) Hypertension: Code(s): I10 - Essential (primary) hypertension Status: Acute Assessment and Plan: Patient will patient slightly high. Will add hydralazine to be used as needed. (4) Hyperlipidemia: Code(s): E78.5 - Hyperlipidemia, unspecified Status: Acute Assessment and Plan: Stable on current medication. Continue current treatment. 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 Labs, imaging, EKG, and all reports were personally reviewed. CBC shows mild neutropenia, profound normocytic anemia, and severe thrombocytopenia. Rare schistocytes visible on the peripheral smear. 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 Transfusion of platelets with adequate rise on day of admission to 64 K which quickly dwindle down in next few days. LDH normal. 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 CTA chest abdomen pelvis with no PE dependent ground-glass opacity of the lung which could reflect mild pulmonary edema no other acute findings in abdomen or pelvis Platelet count continues to improve slowly now. 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 The next management step is administration of Rituximab weekly dose for 4 weeks. However, Rituximab can only be given in oncology infusion clinic. We need to transition patient to oral steroid in order for her to be discharged. Heme oncologist recommends patient transitioned to Dexamethasone 40mg PO daily with GI ulcer prophylaxis with PPI. patient should be observed for atleast 48 hrs on oral dexamethasone to document continued stability of platelet counts, changing to dexamethasone on 10/22/22 and then observe platelet count for few days. Appreciate heme oncologist consultation For Subjective Date/time seen: 10/23/22 15:59 Interval history: I saw and examined the patient. Patient condition continued to improve, platelets stable, hemoglobin is trending up. Patient is afebrile, no obvious bleeding Exam Narrative: Head/eyes: Atraumatic, EOMI, PERRLA. ENT: Moist mucous membranes, nasal passages clear. Neck: Supple, full range of motion, trachea midline. CVS: S1 + S2 + 0, regular rate and rhythm, no murmurs Respiratory: Bilaterally decreased air entry in both lung sandoval, symmetric expansion of chest, no distress Abdomen: Soft, non-tender, bowel sounds +ve, no organomegaly. Extremities: No clubbing, no cyanosis, no edema, no calf tenderness Musculoskeletal: Moves all, decreased range of motion, no muscle spasms Skin: Warm, dry, no jaundice, no cyanosis Neurological: Awake, alert, oriented x 3, cranial nerves II-XII intact, no focal neurological deficits. Psychiatric: Normal mood Objective Data Vital Signs Vital Signs: Vital Signs - 24 hr 10/22/22 16:37 10/22/22 19:53 10/22/22 20:00 Temperature 98.4 F Pulse Rate 76 Respiratory Rate 16 Blood Pressure 124/65 155/74 H Pulse Oximetry 98 Oxygen Delivery Room Air 10/23/22 04:55 10/23/22 08:50 10/23/22 08:50 Temperature 97.2 F L Pulse Rate 63 68 Respiratory Rate 16 Blood Pressure 156/71 H Pulse Oximetry 98 Oxygen Delivery Room Air 10/23/22 12:09 10/23/22 14:00 Temperature 98 F Pulse Rate 79 Respiratory Rate 18 Blood Pressure 117/68 113/61 Pulse Oximetry 99 Oxygen Delivery Intake/Output Intake/Output: Intake & Output 10/20/22 10/21/22 10/22/22 10/23/22
[2022-10-23 16:47] VITALS: BP 136/83
[2022-10-23 20:05] VITALS: BP 133/63; PULSE 65; RESP 18; TEMP 36.1; O2SAT 98
[2022-10-24 03:27] VITALS: BP 156/73; PULSE 62; RESP 18; TEMP 36.4; O2SAT 100
[2022-10-24 05:54] LABS: Basophils Percent Auto 0.2 % (0.2-1.2); Hematocrit 32.7 % (37.0-47.0); Hemoglobin 10.1 g/dL (12.0-15.0); Immature Granulocyte Absolute 0.09 K/mm3 (0.00-0.031); Immature Granulocyte Percent A 1.8 % (0-0.5); Immature Platelet Fraction Pct 5.1 % (0.9-11.2); Lymphocytes Absolute Auto 0.36 K/mm3 (0.9-3.2); Lymphocytes Percent Auto 7.2 % (18.3-44.2); Mean Corpuscular HGB Conc 30.9 g/dl (32-36); Mean Corpuscular Hemoglobin 28.5 pg (26-34); Mean Corpuscular Volume 92.1 fl (80-100); Monocytes Absolute Auto 0.4 K/mm3 (0.1-0.6); Monocytes Percent Auto 8.5 % (2.6-8.5); Neutrophils Absolute Auto 4.1 K/mm3 (1.3-6.7); Neutrophils Percent Auto 82.3 % (45.5-73.1); Red Blood Count 3.55 M/mm3 (4.2-5.4); Red Cell Distribution Width 22.5 % (11.5-14.5)
[2022-10-24 06:39] LABS: Platelet Count Result 19 k/mm3 (150-375)
[2022-10-24 06:40] LABS: Hypochromasia 1+ (NORMAL); Macrocytosis 1+ (NORMAL); Platelet Estimate Decreased (Adequate); Schistocytes None Seen (NORMAL)
--- NOTE | 2022-10-24 07:53 | PM.IMPN ---
Progress Note: A&P Assessment and Plan (1) Thrombocytopenia: Code(s): D69.6 - Thrombocytopenia, unspecified Status: Acute Assessment and Plan: . (2) Normocytic anemia: Code(s): D64.9 - Anemia, unspecified Status: Acute (3) Hypertension: Code(s): I10 - Essential (primary) hypertension Status: Acute Assessment and Plan: Patient will patient slightly high. Will add hydralazine to be used as needed. (4) Hyperlipidemia: Code(s): E78.5 - Hyperlipidemia, unspecified Status: Acute Assessment and Plan: Stable on current medication. Continue current treatment. 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 Labs, imaging, EKG, and all reports were personally reviewed. CBC shows mild neutropenia, profound normocytic anemia, and severe thrombocytopenia. Rare schistocytes visible on the peripheral smear. 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 Transfusion of platelets with adequate rise on day of admission to 64 K which quickly dwindle down in next few days. LDH normal. 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 The next management step is administration of Rituximab weekly dose for 4 weeks. However, Rituximab can only be given in oncology infusion clinic. We need to transition patient to oral steroid in order for her to be discharged. Heme oncologist recommends patient transitioned to Dexamethasone 40mg PO daily with GI ulcer prophylaxis with PPI. patient should be observed for atleast 48 hrs on oral dexamethasone to document continued stability of platelet counts, changing to dexamethasone on 10/22/22 and then observe platelet count for few days. Platelet count continues to improve slowly now. Hold transfusion platelet unless platelet below 5000 Hemoglobin and platelets improves slowly 10/24: Hemoglobin 10.1, platelets 19,000. Anxiety Likely secondary to the effect of high-dose of prednisone Ambien 5 mg q.h.s. p.r.n. for insomnia Appreciate heme oncologist consultation For Subjective Date/time seen: 10/24/22 07:53 Interval history: I saw and examined the patient. Patient condition continued to improve, platelets stable, hemoglobin is trending up. Patient is afebrile, no obvious bleeding Exam Narrative: Head/eyes: Atraumatic, EOMI, PERRLA. ENT: Moist mucous membranes, nasal passages clear. Neck: Supple, full range of motion, trachea midline. CVS: S1 + S2 + 0, regular rate and rhythm, no murmurs Respiratory: Bilaterally decreased air entry in both lung sandoval, symmetric expansion of chest, no distress Abdomen: Soft, non-tender, bowel sounds +ve, no organomegaly. Extremities: No clubbing, no cyanosis, no edema, no calf tenderness Musculoskeletal: Moves all, decreased range of motion, no muscle spasms Skin: Warm, dry, no jaundice, no cyanosis Neurological: Awake, alert, oriented x 3, cranial nerves II-XII intact, no focal neurological deficits. Psychiatric: Normal mood Objective Data Vital Signs Vital Signs: Vital Signs - 24 hr 10/23/22 08:50 10/23/22 08:50 10/23/22 12:09 Temperature Pulse Rate 68 Respiratory Rate Blood Pressure 117/68 Pulse Oximetry Oxygen Delivery Room Air 10/23/22 14:00 10/23/22 16:47 10/23/22 20:05 Temperature 98 F 97 F L Pulse Rate 79 65 Respiratory Rate 18 18 Blood Pressure 113/61 136/83 133/63 Pulse Oximetry 99 98 Oxygen Delivery 10/23/22 20:00 10/24/22 03:27 Temperature 97.5 F L Pulse Rate 62 Respiratory Rate 18 Blood P
[2022-10-24 10:00] VITALS: BP 141/86
[2022-10-24] MEDS: PANTOPRAZOLE 40 MG TABLET PO (10:08)
[2022-10-24] MEDS: DEXAMETHASONE 4 MG TABLET 40 MG PO (10:08)
[2022-10-24 10:12] VITALS: PULSE 66
[2022-10-24] MEDS: METOPROLOL SUCCINATE EXT REL 50 MG TABCR PO (10:12)
--- NOTE | 2022-10-24 13:15 | P.PNONC_ITS ---
Progress Note: A/P (1) Immune thrombocytopenia Code(s): D69.3 - Immune thrombocytopenic purpura Status: Acute Assessment and plan: Patient with severe ITP. Clinical picture is consistent with ITP although platelet antibodies are pending. Patient has been administered two rounds of IVIG and has been on solumedrol 80mg IV q 8 hrs. This is steroid and IVIg refractory ITP with lack of normalization or increase of platelets more than 50K. The next management step is administration of Rituximab weekly dose for 4 weeks. However, Rituximab can only be given in oncology infusion clinic. We need to transition patient to oral steroid in order for her to be discharged. I recommended patient transitioned to Dexamethasone 40mg PO daily with GI ulcer prophylaxis with PPI. patient should be observed for at least 48 hrs while on oral dexamethasone to document continued stability of platelet counts. Solumedrol is now transitioned to Dexamethasone 40mg with first dose to be given 10/23/22. Today, 10/24/22, platelets are 19K and slowly improving. She is also on protonix for GI ulcer prophylaxis. Recommend following for one more day and she can be discharged on 10/26/22. - Time Spent With Patient Total time spent is greater than 50% in coordination of care (as documented) at patient's floor/unit and/or counseling patient: 15 - 25 minutes Subjective Interval history: REASON FOR VISIT: SEVERE THROMBOCYTOPENIA- STEROID AND IVIG REFRACTORY HPI: Patient seen today in inpatient wards. at bedside. No overnight events. Denies spontaneous bleeding or bruising. Denies chest pain, dyspnea, cough or hemoptysis. No hematochezia or melena. No hematuria. Review of Systems - Review of Systems Patient feels well and slept well without any overnight events. Denies spontaneous bleeding. No falls. Denies chest pain, dyspnea, cough or hemoptysis. Denies abdominal pain, n/v/d. No hematochezia or melena. no hematuria. Exam - Constitutional no acute distress - Routine HEENT Exam Head: Present: atraumatic, normal inspection - Routine Neck Exam Present: full ROM - Routine Cardiovascular Exam Cardiovascular: Present: RRR, S1, S2 - Routine Abdominal Exam Present: normal bowel sounds PN: Objective Data - Labs CBC & Chem 7: 10/24/22 05:38 10/19/22 04:59 Labs: Laboratory Results - last 24 hr 10/24/22 05:38 WBC 5.0 RBC 3.55 L Hgb 10.1 L Hct 32.7 L MCV 92.1 MCH 28.5 MCHC 30.9 L RDW 22.5 H Plt Count 19 L* MPV TNP Immature Gran % (Auto) 1.8 H Neut % (Auto) 82.3 H Lymph % (Auto) 7.2 L [place] % (Auto) 8.5 Eos % (Auto) 0.0 Baso % (Auto) 0.2 Lymph # (Auto) 0.36 L [place] # (Auto) 0.4 Eos # (Auto) 0.0 Baso # (Auto) 0.0 Abs Immat Gran (auto) 0.09 H Absolute Neuts (auto) 4.1 Absolute Nucleated RBC 0.0 Nucleated RBC % 0.0 Platelet Estimate Decreased % Immature Plt Fraction 5.1 Hypochromasia 1+ Macrocytosis 1+ Schistocytes None seen
[2022-10-24 14:00] VITALS: BP 130/60; PULSE 72; RESP 18; TEMP 37.1; O2SAT 98
[2022-10-24 20:12] VITALS: BP 159/73; PULSE 58; RESP 18; TEMP 36.4; O2SAT 98
[2022-10-25 03:57] VITALS: BP 170/79; PULSE 59; RESP 18; TEMP 36.7; O2SAT 99
--- NOTE | 2022-10-25 07:43 | PM.IMPN ---
Progress Note: A&P Assessment and Plan (1) Thrombocytopenia: Code(s): D69.6 - Thrombocytopenia, unspecified Status: Acute Assessment and Plan: . (2) Normocytic anemia: Code(s): D64.9 - Anemia, unspecified Status: Acute (3) Hypertension: Code(s): I10 - Essential (primary) hypertension Status: Acute Assessment and Plan: Patient will patient slightly high. Will add hydralazine to be used as needed. (4) Hyperlipidemia: Code(s): E78.5 - Hyperlipidemia, unspecified Status: Acute Assessment and Plan: Stable on current medication. Continue current treatment. 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 Labs, imaging, EKG, and all reports were personally reviewed. CBC shows mild neutropenia, profound normocytic anemia, and severe thrombocytopenia. Rare schistocytes visible on the peripheral smear. 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 Transfusion of platelets with adequate rise on day of admission to 64 K which quickly dwindle down in next few days. LDH normal. Receive methylprednisolone IV, transition to dexamethasone p.o. 40 mg daily Platelet is improving, today 24,000. 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 The next management step is administration of Rituximab weekly dose for 4 weeks. However, Rituximab can only be given in oncology infusion clinic. We need to transition patient to oral steroid in order for her to be discharged. Heme oncologist recommends patient transitioned to Dexamethasone 40mg PO daily with GI ulcer prophylaxis with PPI. patient should be observed for atleast 48 hrs on oral dexamethasone to document continued stability of platelet counts, changing to dexamethasone on 10/22/22 and then observe platelet count for few days. Platelet count continues to improve slowly now. Hold transfusion platelet unless platelet below 5000 Hemoglobin and platelets improves slowly Hemoglobin 11.1, platelets 19,000. Anxiety Likely secondary to the effect of high-dose of prednisone Ambien 5 mg q.h.s. p.r.n. for insomnia Uncontrolled hypertension Likely secondary to high dose of steroid Continue metoprolol 50 mg daily p.o., Add hydrochlorothiazide 25 mg daily p.o. amlodipine 5 mg daily p.o. Discontinue hydralazine 12.5 mg q.i.d. p.o. Subjective Date/time seen: 10/25/22 07:43 Interval history: I saw and examined patient today, patient has no new issue even over the night. Patient denies fever, chills, nausea vomiting dysuria Exam Narrative: Head/eyes: Atraumatic, EOMI, PERRLA. ENT: Moist mucous membranes, nasal passages clear. Neck: Supple, full range of motion, trachea midline. CVS: S1 + S2 + 0, regular rate and rhythm, no murmurs Respiratory: Bilaterally decreased air entry in both lung sandoval, symmetric expansion of chest, no distress Abdomen: Soft, non-tender, bowel sounds +ve, no organomegaly. Extremities: No clubbing, no cyanosis, no edema, no calf tenderness Musculoskeletal: Moves all, decreased range of motion, no muscle spasms Skin: Warm, dry, no jaundice, no cyanosis Neurological: Awake, alert, oriented x 3, cranial nerves II-XII intact, no focal neurological deficits. Psychiatric: Normal mood Objective Data Vital Signs Vital Signs: Vital Signs - 24 hr 10/24/22 10:12 10/24/22 10:00 10/24/22 08:00 Temperature Pulse Rate 66 Respiratory Rate Blood Pressure 141/86 H Pulse Oximetry Oxygen Delivery Room Air
[2022-10-25 08:10] LABS: Basophils Percent Auto 0.2 % (0.2-1.2); Hematocrit 35.7 % (37.0-47.0); Hemoglobin 11.1 g/dL (12.0-15.0); Immature Granulocyte Absolute 0.08 K/mm3 (0.00-0.031); Immature Granulocyte Percent A 1.2 % (0-0.5); Immature Platelet Fraction Pct 5.9 % (0.9-11.2); Lymphocytes Absolute Auto 0.51 K/mm3 (0.9-3.2); Lymphocytes Percent Auto 7.7 % (18.3-44.2); Mean Corpuscular HGB Conc 31.1 g/dl (32-36); Mean Corpuscular Hemoglobin 29.1 pg (26-34); Mean Corpuscular Volume 93.5 fl (80-100); Mean Platelet Volume 11.8 fl (7.4-10.4); Monocytes Absolute Auto 0.5 K/mm3 (0.1-0.6); Neutrophils Absolute Auto 5.5 K/mm3 (1.3-6.7); Neutrophils Percent Auto 82.9 % (45.5-73.1); Red Blood Count 3.82 M/mm3 (4.2-5.4); Red Cell Distribution Width 23.4 % (11.5-14.5); White Blood Count 6.7 K/mm3 (4.5-10.0)
[2022-10-25 08:22] LABS: Platelet Count Result 24 k/mm3 (150-375)
[2022-10-25 08:30] LABS: Anion Gap 5 mmol/L (8-16); Blood Urea Nitrogen 26 mg/dL (7-17); Calcium 8.4 mg/dL (8.4-10.2); Carbon Dioxide 26 mmol/L (22-30); Chloride 103 mmol/L (98-107); Estimated CRCL calculation 57 ml/min; Estimated Glomerular Filt Rate > 60; Glucose 102 mg/dL (65-110); Sodium 134 mmol/L (137-145)
[2022-10-25 08:31] LABS: Anisocytosis 3+ (NORMAL); Platelet Estimate Decreased (Adequate); Schistocytes None Seen (NORMAL)
[2022-10-25 10:01] VITALS: PULSE 62
[2022-10-25] MEDS: METOPROLOL SUCCINATE EXT REL 50 MG TABCR PO (10:01)
[2022-10-25] MEDS: amLODIPine BESYLATE 5 MG TABLET PO (10:01)
[2022-10-25] MEDS: hydroCHLOROthiazide 25 MG TABLET PO (10:01)
[2022-10-25] MEDS: PANTOPRAZOLE 40 MG TABLET PO (10:01)
[2022-10-25] MEDS: DEXAMETHASONE 4 MG TABLET 40 MG PO (10:02)
[2022-10-25 14:00] VITALS: BP 119/62; PULSE 66; RESP 18; TEMP 36.7; O2SAT 98
--- NOTE | 2022-10-25 18:53 | WPDONCPN ---
Progress Note: A/P (1) Immune thrombocytopenia Code(s): D69.3 - Immune thrombocytopenic purpura Status: Acute Assessment and plan: Patient with severe ITP. Clinical picture is consistent with ITP although platelet antibodies are pending. Patient has been administered two rounds of IVIG and has been on solumedrol 80mg IV q 8 hrs. This is steroid and IVIg refractory ITP with lack of normalization or increase of platelets more than 50K. The next management step is administration of Rituximab weekly dose for 4 weeks. However, Rituximab can only be given in oncology infusion clinic. We need to transition patient to oral steroid in order for her to be discharged. I recommended patient transitioned to Dexamethasone 40mg PO daily with GI ulcer prophylaxis with PPI. patient should be observed for at least 48 hrs while on oral dexamethasone to document continued stability of platelet counts. Solumedrol is now transitioned to Dexamethasone 40mg with first dose to be given 10/23/22. Today, 10/25/22, platelets are 24K and continue to improve. She is also on protonix for GI ulcer prophylaxis. If platelets continue to rise or stable she can be discharged on 10/26/22. If platelets are more than 40K tomorrow then the dose of Dexamethasone can be decreased to 30mg daily for her to go home on the this dose. Please provide atleast 10 day supply of the medication. She will follow with Dr. Acosta week of 10/31/22. - Time Spent With Patient Total time spent is greater than 50% in coordination of care (as documented) at patient's floor/unit and/or counseling patient: 25 - 35 minutes Subjective Interval history: REASON FOR VISIT: SEVERE THROMBOCYTOPENIA- STEROID AND IVIG REFRACTORY HPI: Patient seen today in inpatient wards. at bedside. No overnight events. Denies spontaneous bleeding or bruising. Denies chest pain, dyspnea, cough or hemoptysis. No hematochezia or melena. No hematuria. Review of Systems - Review of Systems Patient feels well. States that she had difficulty falling sleep last night. She denies anxiety or jitters. Denies spontaneous bleeding. No falls. Denies chest pain, dyspnea, cough or hemoptysis. Denies abdominal pain, n/v/d. No hematochezia or melena. no hematuria. Exam - Constitutional no acute distress - Routine HEENT Exam Head: Present: atraumatic, normal inspection - Routine Neck Exam Present: full ROM - Routine Cardiovascular Exam Cardiovascular: Present: RRR, S1, S2 - Routine Abdominal Exam Present: normal bowel sounds PN: Objective Data - Labs CBC & Chem 7: 10/25/22 07:56 10/25/22 07:56 Labs: Laboratory Results - last 24 hr 10/25/22 07:56 WBC 6.7 RBC 3.82 L Hgb 11.1 L Hct 35.7 L MCV 93.5 MCH 29.1 MCHC 31.1 L RDW 23.4 H Plt Count 24 L* MPV 11.8 H Immature Gran % (Auto) 1.2 H Neut % (Auto) 82.9 H Lymph % (Auto) 7.7 L [place] % (Auto) 8.0 Eos % (Auto) 0.0 Baso % (Auto) 0.2 Lymph # (Auto) 0.51 L [place] # (Auto) 0.5 Eos # (Auto) 0.0 Baso # (Auto) 0.0 Abs Immat Gran (auto) 0.08 H Absolute Neuts (auto) 5.5 Absolute Nucleated RBC 0.0 Nucleated RBC % 0.0 Platelet Estimate Decreased % Immature Plt Fraction 5.9 Anisocytosis 3+ Schistocytes None seen Sodium 134 L Potassium 5.0 Chloride 103 Carbon Dioxide 26 Anion Gap 5 L BUN 26 H Creatinine 0.60 L Estim Creat Clear Calc 57 Estimated GFR > 60 Glucose 102 Calcium 8.4
[2022-10-25 20:47] VITALS: BP 144/72; PULSE 68; RESP 18; TEMP 36.6; O2SAT 98
[2022-10-25 21:42] VITALS: O2SAT 98
[2022-10-26 05:30] VITALS: BP 168/76; PULSE 61; RESP 18; TEMP 36.4; O2SAT 98
[2022-10-26 05:44] LABS: Basophils Percent Auto 0.1 % (0.2-1.2); Hematocrit 32.6 % (37.0-47.0); Immature Granulocyte Absolute 0.08 K/mm3 (0.00-0.031); Immature Granulocyte Percent A 1.2 % (0-0.5); Immature Platelet Fraction Pct 5.7 % (0.9-11.2); Lymphocytes Absolute Auto 0.34 K/mm3 (0.9-3.2); Lymphocytes Percent Auto 4.9 % (18.3-44.2); Mean Corpuscular HGB Conc 30.7 g/dl (32-36); Mean Corpuscular Hemoglobin 28.5 pg (26-34); Mean Corpuscular Volume 92.9 fl (80-100); Mean Platelet Volume 9.7 fl (7.4-10.4); Monocytes Absolute Auto 0.5 K/mm3 (0.1-0.6); Monocytes Percent Auto 7.8 % (2.6-8.5); Neutrophils Absolute Auto 5.9 K/mm3 (1.3-6.7); Red Blood Count 3.51 M/mm3 (4.2-5.4); Red Cell Distribution Width 23.1 % (11.5-14.5); White Blood Count 6.9 K/mm3 (4.5-10.0)
[2022-10-26 05:54] LABS: Anion Gap 4 mmol/L (8-16); Blood Urea Nitrogen 24 mg/dL (7-17); Calcium 8.2 mg/dL (8.4-10.2); Carbon Dioxide 29 mmol/L (22-30); Chloride 101 mmol/L (98-107); Estimated CRCL calculation 49 ml/min; Estimated Glomerular Filt Rate > 60; Glucose 105 mg/dL (65-110); Potassium 4.3 mmol/L (3.4-5.0); Sodium 134 mmol/L (137-145)
[2022-10-26 06:41] LABS: Platelet Count Result 23 k/mm3 (150-375)
[2022-10-26 06:42] LABS: Anisocytosis 1+ (NORMAL); Hypochromasia 1+ (NORMAL); Platelet Estimate Decreased (Adequate); Schistocytes Rare (NORMAL); Tear Drop Cells 1+ (NORMAL)
[2022-10-26 08:00] VITALS: PULSE 72; RESP 18; O2SAT 96
[2022-10-26] MEDS: DEXAMETHASONE 4 MG TABLET 40 MG PO (08:25)
[2022-10-26] MEDS: hydroCHLOROthiazide 25 MG TABLET PO (08:25)
[2022-10-26 08:26] VITALS: PULSE 72
[2022-10-26] MEDS: METOPROLOL SUCCINATE EXT REL 50 MG TABCR PO (08:26)
[2022-10-26] MEDS: PANTOPRAZOLE 40 MG TABLET PO (08:26)
[2022-10-26] MEDS: amLODIPine BESYLATE 5 MG TABLET PO (08:26)
[2022-10-26 08:42] VITALS: O2SAT 96
--- NOTE | 2022-10-26 12:04 | PDONCFUV ---
Assessment/Plan - Assessment Immune thrombocytopenia- Patient with severe ITP. Clinical picture is consistent with ITP although platelet antibodies are pending. Patient has been administered two rounds of IVIG and has been on solumedrol 80mg IV q 8 hrs. This is steroid and IVIg refractory ITP with lack of normalization or increase of platelets more than 50K. The next management step is administration of Rituximab weekly dose for 4 weeks. However, Rituximab can only be given in oncology infusion clinic. We need to transition patient to oral steroid in order for her to be discharged. I recommended patient transitioned to Dexamethasone 40mg PO daily with GI ulcer prophylaxis with PPI. patient should be observed for at least 48 hrs while on oral dexamethasone to document continued stability of platelet counts. Solumedrol is now transitioned to Dexamethasone 40mg with first dose to be given 10/23/22. Platelets were 24K on 10/25/22 but today they are 23K. Patient can be discharged with Dexamethasone 40mg with protonix as GI ulcer prophylaxis. she should get CBC on monday10/31/22. Results to be followed up with Dr. Acosta. Please give her 10 day supply of dexamethasone. Follow Up Note - Date/Time 10/26/22 12:04 H&P - Exam - Vital Signs Vital Signs - 24 hr 10/25/22 14:00 10/25/22 20:47 10/25/22 21:42 Temperature 36.7 C 36.6 C Pulse Rate 66 68 Respiratory Rate 18 18 Blood Pressure 119/62 144/72 H Pulse Oximetry 98 98 98 Oxygen Delivery Room Air 10/26/22 05:30 10/26/22 08:26 10/26/22 08:42 Temperature 36.4 C Pulse Rate 61 72 Respiratory Rate 18 Blood Pressure 168/76 H Pulse Oximetry 98 96 Oxygen Delivery Room Air - Exam HEENT: EOMI, PERRLA Lungs: clear to auscultation Heart: no murmurs, gallops, or rubs Abdomen: abdomen soft, non-distended, normal bowel sounds Extremities: normal pulses Integumentary: no abnormalities Neurological: normal gait, normal speech, strength at 5/5 X4 - Lab Results Laboratory Last Values WBC 6.9 K/mm3 (4.5-10.0) 10/26/22 05:23 RBC 3.51 M/mm3 (4.2-5.4) L 10/26/22 05:23 Hgb 10.0 g/dL (12.0-15.0) L 10/26/22 05:23 Hct 32.6 % (37.0-47.0) L 10/26/22 05:23 MCV 92.9 fl (80-100) 10/26/22 05:23 MCH 28.5 pg (26-34) 10/26/22 05:23 MCHC 30.7 g/dl (32-36) L 10/26/22 05:23 RDW 23.1 % (11.5-14.5) H 10/26/22 05:23 Plt Count 23 k/mm3 (150-375) L* 10/26/22 05:23 MPV 9.7 fl (7.4-10.4) 10/26/22 05:23 Immature Gran % (Auto) 1.2 % (0-0.5) H 10/26/22 05:23 Neut % (Auto) 86.0 % (45.5-73.1) H 10/26/22 05:23 Lymph % (Auto) 4.9 % (18.3-44.2) L 10/26/22 05:23 [place] % (Auto) 7.8 % (2.6-8.5) 10/26/22 05:23 Eos % (Auto) 0.0 % (0-4.4) 10/26/22 05:23 Baso % (Auto) 0.1 % (0.2-1.2) L 10/26/22 05:23 Lymph # (Auto) 0.34 K/mm3 (0.9-3.2) L 10/26/22 05:23 [place] # (Auto) 0.5 K/mm3 (0.1-0.6) 10/26/22 05:23 Eos # (Auto) 0.0 K/mm3 (0-0.3) 10/26/22 05:23 Baso # (Auto) 0.0 K/mm3 (0.0-0.1) 10/26/22 05:23 Abs Immat Gran (auto) 0.08 K/mm3 (0.00-0.031) H 10/26/22 05:23 Absolute Neuts (auto) 5.9 K/mm3 (1.3-6.7) 10/26/22 05:23 Absolute Nucleated RBC 0.0 K/mm3 (0.0-0.012) 10/26/22 05:23 Nucleated RBC % 0.0 % (0.0-0.2) 10/26/22 05:23 Platelet Estimate Decreased (Adequate) 10/26/22 05:23 % Immature Plt Fraction 5.7 % (0.9-11.2) 10/26/22 05:23 Hypochromasia 1+ (NORMAL) 10/26/22 05:23 Anisocytosis 1+ (NORMAL) 10/26/22 05:23 Microcytosis 3+ (NORMAL) 10/13/22 12:39 Macrocytosis 1+ (NORMAL) 10/24/22 05:38 Target Cells 1+ (NORMAL) 10/13/22 12:39 Tear Drop Cells 1+ (NORMAL) 10/26/22 05:23 Schistocytes Rare (NORMAL) 10/26/22 05:23 Absolute Retic 0.08 M/mm3 (0.02-0.1) 10/14/22 05:21 Percent Retic 2.81 % (0.7-4.3) 10/14/22 05:21 Immature Retic Fraction 34.9 % (3
--- NOTE | 2022-10-26 12:07 | PM.DS ---
DS: Admitting Diagnosis Discharge Date October 26, 2022 Admitting Diagnosis Anemia and ITP DS: Discharge Diagnosis Discharge Diagnosis (1) Thrombocytopenia: Code(s): D69.6 - Thrombocytopenia, unspecified Status: Acute Assessment and Plan: . (2) Normocytic anemia: Code(s): D64.9 - Anemia, unspecified Status: Acute (3) Hypertension: Code(s): I10 - Essential (primary) hypertension Status: Acute Assessment and Plan: Patient will patient slightly high. Will add hydralazine to be used as needed. (4) Hyperlipidemia: Code(s): E78.5 - Hyperlipidemia, unspecified Status: Acute Assessment and Plan: Stable on current medication. Continue current treatment. 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 Labs, imaging, EKG, and all reports were personally reviewed. CBC shows mild neutropenia, profound normocytic anemia, and severe thrombocytopenia. Rare schistocytes visible on the peripheral smear. 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 Transfusion of platelets with adequate rise on day of admission to 64 K which quickly dwindle down in next few days. LDH normal. Receive methylprednisolone IV, transition to dexamethasone p.o. 40 mg daily Platelet is improving, today 24,000. 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 The next management step is administration of Rituximab weekly dose for 4 weeks. However, Rituximab can only be given in oncology infusion clinic. We need to transition patient to oral steroid in order for her to be discharged. Heme oncologist recommends patient transitioned to Dexamethasone 40mg PO daily with GI ulcer prophylaxis with PPI. patient should be observed for atleast 48 hrs on oral dexamethasone to document continued stability of platelet counts, changing to dexamethasone on 10/22/22 and then observe platelet count for few days. Platelet count continues to improve slowly now. Hold transfusion platelet unless platelet below 5000 Hemoglobin and platelets improves slowly Hemoglobin 11.1, platelets 19,000. Anxiety Likely secondary to the effect of high-dose of prednisone Ambien 5 mg q.h.s. p.r.n. for insomnia Uncontrolled hypertension Likely secondary to high dose of steroid Continue metoprolol 50 mg daily p.o., Add hydrochlorothiazide 25 mg daily p.o. amlodipine 5 mg daily p.o. Discontinue hydralazine 12.5 mg q.i.d. p.o. DS: Summary Hospital Course Hospital Course: Patient was admitted for anemia and ITP. Oncology/hematology was consulted. Started the patient on dexamethasone. Will likely need outpatient infusion of rituximab as well. Patient will need blood work this next week. Continue high-dose dexamethasone. Continue PPI. Otherwise she is doing well and doing her normal activity she can be discharged. She will need follow-up with Dr. rosado in hematology clinic Time Spent with Patient Time attestation: Total time spent providing and/or coordinating discharge services: Exam Narrative: Head/eyes: Atraumatic, EOMI, PERRLA. ENT: Moist mucous membranes, nasal passages clear. Neck: Supple, full range of motion, trachea midline. CVS: S1 + S2 + 0, regular rate and rhythm, no murmurs Respiratory: Bilaterally decreased air entry in both lung sandoval, symmetric expansion of chest, no distress Abdomen: Soft, non-tender, bowel sounds +ve, no organomegaly. Extremities: No clubbing, no cyanosis, no edema, no calf tenderness Musculoskeletal: Move
== END 2022-10-26 13:01 | disposition home or self-care (01) | DRG 813 ==
LOC: ANHED 15:06 → ANH2MED 15:41
PROVIDERS: Family Medicine; Hospitalist; Internal Medicine; Internal Medicine Hematology & Oncology; Physician Assistant; Admitting Provider Internal Medicine; Emergency Provider Student in an Organized Health Care Education/Training Program; PCP Family Medicine; Visit Provider Chiropractor
DX: D69.3 Immune thrombocytopenic purpura (principal); D59.10 Autoimmune hemolytic anemia, unspecified; D70.9 Neutropenia, unspecified; F41.8 Other specified anxiety disorders; G47.00 Insomnia, unspecified; I10 Essential (primary) hypertension; T38.0X5A Adverse effect of glucocorticoids and synthetic analogues, initial encounter; E78.5 Hyperlipidemia, unspecified
CPT/HCPCS: 36415; 36430; 71275; 74177; 80048; 80053; 82607; 82728; 82746; 83010; 83540; 83550; 83615; 83735; 83880; 84100; 84443; 84484; 85014; 85018; 85025; 85027; 85046; 85055; 85610; 85730; 86023; 86850; 86880; 86900; 86901; 86920; 86923; 93005; 99285; P9036; A9270; C9113; J1459; J1756; J2930; J7050; J8540; P9016; P9034; Q9967

== ENCOUNTER 2022-10-31 14:58 | Outpatient (CLI) | payer OTHER, SELFPAY ==
[2022-10-31 15:29] LABS: Hematocrit 35.5 % (37.0-47.0); Hemoglobin 11.5 g/dL (12.0-15.0); Immature Granulocyte Absolute 0.06 K/mm3 (0.00-0.031); Immature Granulocyte Percent A 0.6 % (0-0.5); Immature Platelet Fraction Pct 4.3 % (0.9-11.2); Lymphocytes Absolute Auto 0.19 K/mm3 (0.9-3.2); Mean Corpuscular HGB Conc 32.4 g/dl (32-36); Mean Corpuscular Hemoglobin 29.3 pg (26-34); Mean Corpuscular Volume 90.6 fl (80-100); Mean Platelet Volume 9.8 fl (7.4-10.4); Monocytes Absolute Auto 0.1 K/mm3 (0.1-0.6); Monocytes Percent Auto 1.3 % (2.6-8.5); Neutrophils Absolute Auto 9.1 K/mm3 (1.3-6.7); Neutrophils Percent Auto 96.1 % (45.5-73.1); Platelet Count Result 31 k/mm3 (150-375); Red Blood Count 3.92 M/mm3 (4.2-5.4); Red Cell Distribution Width 23.5 % (11.5-14.5); White Blood Count 9.5 K/mm3 (4.5-10.0)
== END 2022-10-31 14:59 | disposition home or self-care (01) ==
LOC: ANHLAB 15:01
PROVIDERS: PCP Family Medicine; Visit Provider Internal Medicine Hematology & Oncology
DX: D69.3 Immune thrombocytopenic purpura (principal)
CPT/HCPCS: 36415; 85025; 85055

== ENCOUNTER 2022-11-10 10:37 | Outpatient (CLI) | payer OTHER, SELFPAY ==
[2022-11-10 10:52] LABS: Hematocrit 36.1 % (37.0-47.0); Hemoglobin 11.7 g/dL (12.0-15.0); Immature Platelet Fraction Pct 4.4 % (0.9-11.2); Mean Corpuscular HGB Conc 32.4 g/dl (32-36); Mean Corpuscular Hemoglobin 30.1 pg (26-34); Mean Corpuscular Volume 92.8 fl (80-100); Mean Platelet Volume 8.1 fl (7.4-10.4); Red Blood Count 3.89 M/mm3 (4.2-5.4); Red Cell Distribution Width 24.2 % (11.5-14.5); White Blood Count 6.4 K/mm3 (4.5-10.0)
[2022-11-10 10:53] LABS: Platelet Count Result 21 k/mm3 (150-375)
== END 2022-11-10 10:38 | disposition home or self-care (01) ==
PROVIDERS: PCP Family Medicine; Visit Provider Internal Medicine Hematology & Oncology
DX: D69.3 Immune thrombocytopenic purpura (principal)
CPT/HCPCS: 36415; 85027; 85055

== ENCOUNTER 2022-11-21 19:17 | Emergency (ER) | payer OTHER, SELFPAY ==
--- NOTE | ~2022-11-21 | CT_ITS ---
EXAMINATION: CT brain wo con DATE: 11/21/2022 20:58 INDICATION: possible seizure? . TECHNIQUE: Computed tomography (CT) of the head was performed without intravenous contrast. The mA wa s adjusted according to patient size. Iterative reconstruction technique was employed. The dose-lengt h product was 605.33 mGy-cm. COMPARISON: None. FINDINGS: No acute extra-axial fluid collection. 5 mm focal hyperdensity adjacent to the right caudate head. Macdonald btle, somewhat serpiginous gyral hyperdensity in the right posterior frontal lobe. No hydrocephalus, mass, or herniation. No acute ischemic infarct. Unremarkable dural venous sinus attenuation. No acute osseous abnormality. The aerated spaces are clear. Mild atrophy and chronic white matter change. Atherosclerotic intracranial calcification. IMPRESSION: 5 mm hyperdense focus adjacent to the right caudate head, may represent a small focus of intraparench ymal hemorrhage versus dystrophic calcification. A small hyperdense mass is not excluded. Subtle serpiginous hyperdensity within right posterior frontal gyri, may represent dystrophic calcifi cation such as laminar necrosis. Comparison to outside studies would be helpful if available. Consider MR of the brain without and wit h contrast for further evaluation. Reviewed, dictated and finalized at location K. IMPRESSION: 5 mm hyperdense focus adjacent to the right caudate head, may represent a small focus of intraparenchymal hemorrhage versus dystrophic calcification. A small hyperdense mass is not excluded. Subtle serpiginous hyperdensity within right posterior frontal gyri, may repres ent dystrophic calcification such as laminar necrosis. Comparison to outside studies would be helpful if available. Consider MR of the brain without and with contrast for further evaluation.
--- NOTE | 2022-11-21 20:43 | ED.GENADULT ---
HPI - General Adult General Chief complaint: Unspecified Stated complaint: tremors Time Seen by Provider: 11/21/22 20:13 History of Present Illness HPI narrative: Patient is a 77-year-old female with a history of ITP status post steroids presenting with shaking. Patient's is at bedside and helps provide the history. States that she was diagnosed with ITP and started on 24 days of steroids. She was then tapered off of the steroids and stopped them approximately 4 to 5 days ago. She has been having a lot of tremors since being on the steroids. Patient's states that for the last several hours she has been having episodes where her whole body is shaking and she stops talking. Currently, patient is having one of these episodes and unable to provide history. Related Data Home Medications Medication Instructions Recorded Confirmed lovastatin 40 mg tablet 40 mg PO QPM 10/13/22 11/08/22 metoprolol succinate 50 mg 50 mg PO QAM 10/13/22 11/08/22 tablet,extended release 24 hr (Toprol XL) Allergies Allergy/AdvReac Type Severity Reaction Status Date / Time Penicillins Allergy Intermediate RASH Verified 11/08/22 09:23 Sulfa (Sulfonamide Allergy Unknown Dizziness Verified 11/08/22 09:23 Antibiotics) Review of Systems Review of Systems: All systems reviewed & are unremarkable except as noted in HPI and below PMFSH Past Medical History Medical History Hyperlipidemia Hypertension Surgical History Surgical History No history of previous surgery Family History Family History Sibling Hypertension Mother Family history of Parkinson's disease Patient's mother is Father Family history of lung cancer Patient's father is Social History Social History Social History: Surrogate medical decision maker: Josh Whitley, spouse. Code status: Full code. Smoking status: Never smoker Second hand tobacco smoke exposure: No Alcohol intake: never Substance use: never Substance use type: does not use Lack of Transportation: No Lack of Food: Never True Current Housing: I Have Housing Concerned About Future Housing: No Difficulty Paying Gas/Electric Bills: No Difficulty Paying for Meds: No Currently Unemployed: No Education: High School Diploma/GED Difficulty w/ Childcare or Family Care: No Spiritual care concerns: No Exam Narrative: GENERAL: Patient is awake, tracking with her eyes, shaking in both upper extremities concerning for seizure activity HEAD: Normocephalic, atraumatic. EYES: PERRLA and EOMI. ENT: Grossly unremarkable NECK: Supple. CHEST: No respiratory distress. HEART: Regular rate and rhythm. ABDOMEN: Soft, nontender, nondistended EXTREMITIES: Normal range of motion. No edema. SKIN: Warm, dry, petechial rash anterior bilateral shins NEURO: Alert, tracking with her eyes to verbal stimuli but not responding verbally, shaking in both upper extremities concerning for seizure PSYCH: Normal mood Course Vital Signs Vital signs: Vital Signs Temperature 98.5 F 11/21/22 21:10 Pulse Rate 103 H 11/21/22 21:10 Respiratory Rate 16 11/21/22 21:10 Blood Pressure 126/73 11/21/22 21:10 Pulse Oximetry 95 11/21/22 21:10 Oxygen Delivery Room Air 11/21/22 21:10 Temperature 98.5 F 11/21/22 21:10 Pulse Rate 70 11/22/22 04:04 Respiratory Rate 17 11/22/22 04:04 Blood Pressure 106/60 11/22/22 04:04 Pulse Oximetry 97 11/22/22 04:04 Oxygen Delivery Room Air 11/21/22 21:10 Medical Decision Making MDM Narrative Medical decision making narrative: 77-year-old female presenting with episodes of shaking. Vitals are stable. Exam remarkable for the above.
[2022-11-21] MEDS: LORazepam INJ (*CRX) 2 MG/ML VIAL 1 MG IV PUSH (20:46)
[2022-11-21 20:58] LABS: Basophils Percent Auto 0.3 % (0.2-1.2); Hematocrit 33.1 % (37.0-47.0); Hemoglobin 10.6 g/dL (12.0-15.0); Immature Granulocyte Absolute 0.04 K/mm3 (0.00-0.031); Immature Granulocyte Percent A 1.3 % (0-0.5); Immature Platelet Fraction Pct 4.1 % (0.9-11.2); Lymphocytes Absolute Auto 0.74 K/mm3 (0.9-3.2); Lymphocytes Percent Auto 24.6 % (18.3-44.2); Mean Corpuscular Hemoglobin 31.4 pg (26-34); Mean Corpuscular Volume 97.9 fl (80-100); Monocytes Absolute Auto 0.3 K/mm3 (0.1-0.6); Neutrophils Absolute Auto 1.9 K/mm3 (1.3-6.7); Neutrophils Percent Auto 63.8 % (45.5-73.1); Red Blood Count 3.38 M/mm3 (4.2-5.4); Red Cell Distribution Width 26.3 % (11.5-14.5)
[2022-11-21 21:09] LABS: Alanine Aminotransferase 128 U/L (6-35); Albumin Level 3.3 g/dL (3.5-5.1); Alkaline Phosphatase 74 U/L (38-126); Anion Gap 3 mmol/L (8-16); Aspartate Amino Transferase 102 U/L (14-36); Bilirubin,Total 0.5 mg/dL (0.2-1.3); Blood Urea Nitrogen 20 mg/dL (7-17); Calcium 8.3 mg/dL (8.4-10.2); Carbon Dioxide 29 mmol/L (22-30); Chloride 106 mmol/L (98-107); Estimated Glomerular Filt Rate > 60; Glucose 187 mg/dL (65-110); Magnesium 2.3 mg/dL (1.6-2.3); Potassium 3.6 mmol/L (3.4-5.0); Sodium 138 mmol/L (137-145)
[2022-11-21 21:10] VITALS: BP 126/73; PULSE 103; RESP 16; TEMP 36.9; O2SAT 95
[2022-11-21 21:10] LABS: Lactic Acid Reflex 2.2 mmol/L (0.7-2.0)
[2022-11-21 21:26] LABS: Platelet Count Result 9 k/mm3 (150-375)
[2022-11-21 21:27] LABS: Platelet Estimate Decreased (Adequate); Schistocytes None Seen (NORMAL)
[2022-11-21 21:28] LABS: Anisocytosis 3+ (NORMAL); Hypochromasia 1+ (NORMAL)
[2022-11-21] MEDS: SODIUM CHLORIDE 0.9% IV 1,000 ML 999 ML IV CONT (21:40)
[2022-11-21 22:17] VITALS: PULSE 89
[2022-11-21] MEDS: levETIRAcetam 1000MG/NACL100ML 1,000 MG/100 ML BAG 400 MG IVPB (23:04)
[2022-11-21 23:54] LABS: Reflex Lactic Acid Yes or No Add Lactic
[2022-11-22 01:41] VITALS: BP 116/71; PULSE 96; RESP 16; O2SAT 95
[2022-11-22 01:51] VITALS: BP 117/62; PULSE 83; RESP 20; O2SAT 98
--- NOTE | 2022-11-22 01:54 | PC.NURSE ---
Report called to Jose PATTON at [facility] by this RN. Transport is scheduled to arrive at 0330. Pt and her spouse aware of transport ETA. Report given to Alba PATTON, who is taking over care of pt at this time.
[2022-11-22 03:10] LABS: Appearance Urine Clear (Clear); Bacteria Urine None Seen /hpf; Bilirubin Urine Negative (Negative); Blood Urine Negative (Negative); Color Urine Yellow (Yellow); Glucose Urine UA 1+ mg/dL (Negative); Ketones Urine Negative (Negative); Leukocyte Esterase Ur Negative LEU/UL (Negative); Nitrate Urine Negative (Negative); Non Pathogenic Casts 0-2; Protein Urine Trace mg/dL (Negative); RBC Urine 0-2 /hpf (0-2); Squamous Epithelial Cell Urine None seen /hpf (Few); Urobilinogen Urine 0.2 mg/dL (<2.0); WBC Urine 0-5 /hpf
--- NOTE | 2022-11-22 03:33 | PC.NURSE ---
11/21 2318: ALS transfer arranged via [facility], ETA 0330 11/22 321: [facility] called for status check, EMS reports trip was declined and they were unavailable to take pt. 11/22 322: ALS transfer arranged via [facility], ETA 0430
[2022-11-22 03:56] LABS: Add Urine Microscopic? YES
[2022-11-22 04:04] VITALS: BP 106/60; PULSE 70; RESP 17; O2SAT 97
== END 2022-11-22 04:50 | disposition short-term general hospital (02) ==
PROVIDERS: Emergency Provider Emergency Medicine; PCP Family Medicine
DX: D69.6 Thrombocytopenia, unspecified (principal); R56.9 Unspecified convulsions; R93.89 Abnormal findings on diagnostic imaging of other specified body structures; I10 Essential (primary) hypertension; E78.5 Hyperlipidemia, unspecified
CPT/HCPCS: 36415; 70450; 80053; 81001; 83605; 83735; 85025; 85055; 96361; 96365; 96375; 99285; J1953; J2060; J7030

== ENCOUNTER 2022-11-28 10:38 | Outpatient (CLI) | payer OTHER, SELFPAY ==
[2022-11-28 10:57] LABS: Basophils Percent Auto 0.8 % (0.2-1.2); Eosinophils Percent Auto 1.2 % (0-4.4); Hemoglobin 10.2 g/dL (12.0-15.0); Immature Granulocyte Absolute 0.07 K/mm3 (0.00-0.031); Immature Granulocyte Percent A 2.7 % (0-0.5); Immature Platelet Fraction Pct 2.3 % (0.9-11.2); Lymphocytes Absolute Auto 0.94 K/mm3 (0.9-3.2); Lymphocytes Percent Auto 36.6 % (18.3-44.2); Mean Corpuscular HGB Conc 31.9 g/dl (32-36); Mean Corpuscular Hemoglobin 31.7 pg (26-34); Mean Corpuscular Volume 99.4 fl (80-100); Mean Platelet Volume 10.1 fl (7.4-10.4); Monocytes Absolute Auto 0.4 K/mm3 (0.1-0.6); Monocytes Percent Auto 17.1 % (2.6-8.5); Neutrophils Absolute Auto 1.1 K/mm3 (1.3-6.7); Neutrophils Percent Auto 41.6 % (45.5-73.1); Nucleated Red Blood Cells Perc 0.8 % (0.0-0.2); Platelet Count Result 38 k/mm3 (150-375); Red Blood Count 3.22 M/mm3 (4.2-5.4); Red Cell Distribution Width 25.2 % (11.5-14.5); White Blood Count 2.6 K/mm3 (4.5-10.0)
[2022-11-30 16:15] LABS: Abnormal Protein Band 1 0.3 g/dL; Albumin 3.6 g/dL (3.8-4.8); Alpha 1 Globulin 0.4 g/dL (0.2-0.3); Alpha 2 Globulin 0.8 g/dL (0.5-0.9); Beta 1 Globulin 0.5 g/dL (0.4-0.6); Protein, Total 6.5 g/dL (6.1-8.1)
== END 2022-11-28 10:39 | disposition home or self-care (01) ==
LOC: ANHLAB 10:39
PROVIDERS: PCP Family Medicine; Visit Provider Internal Medicine Hematology & Oncology
DX: D69.59 Other secondary thrombocytopenia (principal); C82.90 Follicular lymphoma, unspecified, unspecified site
CPT/HCPCS: 36415; 84155; 84165; 85025; 85055

== ENCOUNTER 2022-12-02 09:17 | Outpatient (CLI) | payer OTHER, SELFPAY ==
[2022-12-02 09:37] LABS: Basophils Percent Auto 0.4 % (0.2-1.2); Eosinophils Percent Auto 1.2 % (0-4.4); Hematocrit 30.2 % (37.0-47.0); Hemoglobin 9.6 g/dL (12.0-15.0); Immature Granulocyte Absolute 0.06 K/mm3 (0.00-0.031); Immature Granulocyte Percent A 2.3 % (0-0.5); Immature Platelet Fraction Pct 5.5 % (0.9-11.2); Lymphocytes Absolute Auto 0.97 K/mm3 (0.9-3.2); Lymphocytes Percent Auto 37.6 % (18.3-44.2); Mean Corpuscular HGB Conc 31.8 g/dl (32-36); Mean Corpuscular Hemoglobin 31.9 pg (26-34); Mean Corpuscular Volume 100.3 fl (80-100); Monocytes Absolute Auto 0.5 K/mm3 (0.1-0.6); Neutrophils Percent Auto 39.5 % (45.5-73.1); Nucleated Red Blood Cells Perc 0.8 % (0.0-0.2); Red Blood Count 3.01 M/mm3 (4.2-5.4); Red Cell Distribution Width 24.8 % (11.5-14.5); White Blood Count 2.6 K/mm3 (4.5-10.0)
[2022-12-02 09:38] LABS: Platelet Count Result 10 k/mm3 (150-375)
[2022-12-02 10:47] LABS: Hepatitis B Surface Antigen Negative (Negative)
== END 2022-12-02 09:18 | disposition home or self-care (01) ==
PROVIDERS: PCP Family Medicine; Visit Provider Internal Medicine Hematology & Oncology
DX: Z11.59 Encounter for screening for other viral diseases (principal); C82.90 Follicular lymphoma, unspecified, unspecified site
CPT/HCPCS: 36415; 85025; 85055; 87340

== ENCOUNTER 2022-12-02 10:29 | Outpatient (RCR) | payer OTHER, SELFPAY ==
[2022-12-02] VITALS (7 sets, daily range): BP systolic 133–146; BP diastolic 73–85; PULSE 62–65; RESP 16; TEMP 36.6–37.2; O2SAT 97–99
[2022-12-02] MEDS: ACETAMINOPHEN 325 MG TABLET PO (12:20)
[2022-12-02] MEDS: diphenhydrAMINE HCl CAP 25 MG CAPSULE PO (12:37)
[2022-12-02] MEDS: SODIUM CHLORIDE 0.9% IV 250 ML 30 ML IV CONT (12:40)
== END 2023-03-02 23:59 | disposition home or self-care (01) ==
LOC: ANHCPCTRAN 10:29
PROVIDERS: PCP Family Medicine; Visit Provider Internal Medicine Hematology & Oncology
DX: C82.90 Follicular lymphoma, unspecified, unspecified site (principal); D69.3 Immune thrombocytopenic purpura
CPT/HCPCS: 36415; 36430; 85025; 85055; 86900; 86901; 87340; A9270; J7050; P9034

== ENCOUNTER 2022-12-05 09:41 | Outpatient (CLI) | payer OTHER, SELFPAY ==
[2022-12-05 10:19] LABS: Basophils Percent Auto 0.8 % (0.2-1.2); Eosinophils Percent Auto 1.3 % (0-4.4); Hematocrit 30.9 % (37.0-47.0); Hemoglobin 9.6 g/dL (12.0-15.0); Immature Granulocyte Absolute 0.03 K/mm3 (0.00-0.031); Immature Granulocyte Percent A 1.3 % (0-0.5); Lymphocytes Absolute Auto 0.68 K/mm3 (0.9-3.2); Lymphocytes Percent Auto 28.6 % (18.3-44.2); Mean Corpuscular HGB Conc 31.1 g/dl (32-36); Mean Corpuscular Hemoglobin 31.7 pg (26-34); Mean Platelet Volume 9.2 fl (7.4-10.4); Monocytes Absolute Auto 0.5 K/mm3 (0.1-0.6); Monocytes Percent Auto 19.7 % (2.6-8.5); Neutrophils Absolute Auto 1.2 K/mm3 (1.3-6.7); Neutrophils Percent Auto 48.3 % (45.5-73.1); Platelet Count Result 64 k/mm3 (150-375); Red Blood Count 3.03 M/mm3 (4.2-5.4); Red Cell Distribution Width 25.2 % (11.5-14.5); White Blood Count 2.4 K/mm3 (4.5-10.0)
== END 2022-12-05 09:42 | disposition home or self-care (01) ==
LOC: ANHLAB 09:51
PROVIDERS: PCP Family Medicine; Visit Provider Internal Medicine Hematology & Oncology
DX: C82.90 Follicular lymphoma, unspecified, unspecified site (principal)
CPT/HCPCS: 36415; 85025

== ENCOUNTER 2022-12-08 08:49 | Outpatient (CLI) | payer OTHER, SELFPAY ==
--- NOTE | ~2022-12-08 | PE_ITS ---
EXAMINATION: PET skull to mid thigh DATE: 12/08/2022 11:47 INDICATION: Follicular lymphoma TECHNIQUE: Blood glucose level was 110 mg/dL. 9.88 mCi of 18-fluorodeoxyglucose (18-FDG) was administ ered i.v. Low dose computed tomography (CT) images were acquired from the base of the brain to the pr oximal thighs for attenuation correction and anatomic localization. Positron emission tomography (PET ) images were acquired in the same distribution beginning 62 minutes after injection. The dose-length product (DLP) was 503.45 mGy-cm. COMPARISON: 10/13/2022 FINDINGS: Head/neck: Mild FDG uptake in the extraocular muscles, and intraorbital optic nerves and globes, and vocal cords without suspicious FDG uptake is likely physiologic. No lymphadenopathy is identified. Chest: No pathologically enlarged thoracic lymph nodes are identified. The heart size is normal. Ther e has been interval development of a 7 mm nodule in the left upper lobe with FDG uptake (image 69) an d multiple right lung nodules with low-level FDG uptake, likely infectious or inflammatory given the short interval between examinations. There is mild atelectasis. No pleural effusion or pneumothorax. Abdomen/pelvis/proximal thighs: Physiologic FDG activity is present in the bowel and urinary tract. N o abnormal FDG uptake is identified. There is a small sliding hiatal hernia. The liver, spleen, pancr eas, gallbladder, and adrenal glands are normal. There is a 1.7 cm cyst of the left kidney. The right kidney is unremarkable. No pathologically enlarged abdominal or pelvic lymph nodes are identified. N o free intraperitoneal gas or evidence of bowel obstruction. There is moderate to severe atrophy of t he paraspinal muscles. Colonic diverticulosis is present without evidence of diverticulitis. Musculoskeletal: No abnormal FDG uptake is identified. There is thoracolumbar levoscoliosis with mode rate spondylosis. There is severe cervical spondylosis. IMPRESSION: 1. No lymphadenopathy. 2. Interval development of small pulmonary nodules with FDG uptake, likely infectious or inflammatory . Follow-up low-dose CT in six months is recommended. Reviewed, dictated and finalized at location F. IMPRESSION: 1. No lymphadenopathy. 2. Interval development of small pulmonary nodules with FDG uptake, likely infe ctious or inflammatory. Follow-up low-dose CT in six months is recommended.
[2022-12-08 09:28] LABS: Glucose Point of Care 110 mg/dl (65-105)
== END 2022-12-08 08:50 | disposition home or self-care (01) ==
PROVIDERS: PCP Family Medicine; Visit Provider Internal Medicine Hematology & Oncology
DX: C82.90 Follicular lymphoma, unspecified, unspecified site (principal); C83.39 Diffuse large B-cell lymphoma, extranodal and solid organ sites
CPT/HCPCS: 78815; A9552

== ENCOUNTER 2022-12-09 09:08 | Outpatient (CLI) | payer OTHER, SELFPAY ==
[2022-12-09 09:22] LABS: Basophils Percent Auto 0.3 % (0.2-1.2); Hematocrit 30.2 % (37.0-47.0); Hemoglobin 9.8 g/dL (12.0-15.0); Immature Granulocyte Absolute 0.06 K/mm3 (0.00-0.031); Immature Granulocyte Percent A 1.9 % (0-0.5); Lymphocytes Absolute Auto 0.71 K/mm3 (0.9-3.2); Lymphocytes Percent Auto 22.5 % (18.3-44.2); Mean Corpuscular HGB Conc 32.5 g/dl (32-36); Mean Corpuscular Hemoglobin 33.1 pg (26-34); Mean Platelet Volume 9.8 fl (7.4-10.4); Monocytes Absolute Auto 0.6 K/mm3 (0.1-0.6); Monocytes Percent Auto 18.7 % (2.6-8.5); Neutrophils Absolute Auto 1.8 K/mm3 (1.3-6.7); Neutrophils Percent Auto 55.6 % (45.5-73.1); Platelet Count Result 34 k/mm3 (150-375); Red Blood Count 2.96 M/mm3 (4.2-5.4); Red Cell Distribution Width 24.7 % (11.5-14.5); White Blood Count 3.2 K/mm3 (4.5-10.0)
== END 2022-12-09 09:09 | disposition home or self-care (01) ==
LOC: ANHLAB 09:11
PROVIDERS: PCP Family Medicine; Visit Provider Internal Medicine Hematology & Oncology
DX: C82.90 Follicular lymphoma, unspecified, unspecified site (principal)
CPT/HCPCS: 36415; 85025

== ENCOUNTER 2022-12-12 09:08 | Outpatient (CLI) | payer OTHER, SELFPAY ==
[2022-12-12 09:28] LABS: Basophils Percent Auto 0.3 % (0.2-1.2); Eosinophils Percent Auto 0.6 % (0-4.4); Hematocrit 30.9 % (37.0-47.0); Hemoglobin 9.9 g/dL (12.0-15.0); Immature Granulocyte Absolute 0.04 K/mm3 (0.00-0.031); Immature Granulocyte Percent A 1.2 % (0-0.5); Immature Platelet Fraction Pct 4.3 % (0.9-11.2); Lymphocytes Percent Auto 20.8 % (18.3-44.2); Mean Corpuscular Hemoglobin 33.2 pg (26-34); Mean Corpuscular Volume 103.7 fl (80-100); Mean Platelet Volume 9.6 fl (7.4-10.4); Monocytes Absolute Auto 0.6 K/mm3 (0.1-0.6); Monocytes Percent Auto 17.9 % (2.6-8.5); Neutrophils Percent Auto 59.2 % (45.5-73.1); Platelet Count Result 30 k/mm3 (150-375); Red Blood Count 2.98 M/mm3 (4.2-5.4); Red Cell Distribution Width 24.7 % (11.5-14.5); White Blood Count 3.4 K/mm3 (4.5-10.0)
== END 2022-12-12 09:09 | disposition home or self-care (01) ==
LOC: ANHLAB 09:10
PROVIDERS: PCP Family Medicine; Visit Provider Internal Medicine Hematology & Oncology
DX: C82.90 Follicular lymphoma, unspecified, unspecified site (principal)
CPT/HCPCS: 36415; 85025; 85055

== ENCOUNTER 2023-03-07 07:30 | Outpatient (RCR) | payer OTHER, SELFPAY ==
[2022-12-13] VITALS (7 sets, daily range): BP systolic 107–119; BP diastolic 57–70; PULSE 57–65; RESP 16; TEMP 36.4–37.2; O2SAT 98–100
[2022-12-13] MEDS: ACETAMINOPHEN 325 MG TABLET 650 MG PO (08:44)
[2022-12-13] MEDS: diphenhydrAMINE HCl CAP 25 MG CAPSULE PO (08:44)
[2022-12-13] MEDS: SODIUM CHLORIDE 0.9% IV 250 ML 30 ML IV CONT (08:48)
--- NOTE | 2022-12-13 10:13 | PC.NURSE ---
2u platelet transfusion completed with no complications. Discharge instructions talked over with patient and spouse. Copy provided for patient keep. Patient discharged @1010 via personal vehicle
[2023-01-13 07:50] LABS: Immature Platelet Fraction Pct 3.8 % (0.9-11.2); Mean Platelet Volume 9.5 fl (7.4-10.4); Platelet Count Result 34 k/mm3 (150-375)
[2023-01-13] MEDS: diphenhydrAMINE HCl CAP 25 MG CAPSULE PO (07:50)
[2023-01-13] MEDS: ACETAMINOPHEN 325 MG TABLET PO (07:51)
[2023-01-13] MEDS: SODIUM CHLORIDE 0.9% IV 250 ML 30 ML IV CONT (07:52)
[2023-01-13 08:26] VITALS: BP 157/75; PULSE 53; RESP 16; TEMP 36.8; O2SAT 100
[2023-01-13 08:41] VITALS: BP 135/75; PULSE 51; RESP 16; TEMP 36.6; O2SAT 100
[2023-01-13 09:10] VITALS: BP 137/68; PULSE 51; RESP 16; TEMP 36.8; O2SAT 100
[2023-01-13 09:19] VITALS: BP 137/68; PULSE 51; RESP 16; TEMP 36.8; O2SAT 99
[2023-01-13 09:34] VITALS: BP 146/64; PULSE 49; RESP 16; TEMP 36.7; O2SAT 100
[2023-01-13 10:20] VITALS: BP 136/60; PULSE 54; RESP 16; TEMP 36.9; O2SAT 99
== END 2023-03-13 23:59 | disposition home or self-care (01) ==
LOC: ANHCPCTRAN 07:30
PROVIDERS: PCP Family Medicine; Visit Provider Internal Medicine Hematology & Oncology
DX: C82.90 Follicular lymphoma, unspecified, unspecified site (principal)
CPT/HCPCS: 36415; 36430; 85049; 85055; 86900; 86901; A9270; J7050; P9034

== ENCOUNTER 2023-03-07 07:33 | Outpatient (RCR) | payer OTHER, SELFPAY ==
[2023-02-15] MEDS: diphenhydrAMINE HCl CAP 25 MG CAPSULE PO (07:47)
[2023-02-15] MEDS: ACETAMINOPHEN 325 MG TABLET PO (07:47)
[2023-02-15] MEDS: SODIUM CHLORIDE 0.9% IV 250 ML 30 ML (07:48)
[2023-02-15 08:05] VITALS: BP 117/68; PULSE 64; RESP 16; TEMP 36.8; O2SAT 99
[2023-02-15 08:20] VITALS: BP 111/62; PULSE 55; RESP 18; TEMP 36.9; O2SAT 98
[2023-02-15 08:50] VITALS: BP 114/69; PULSE 56; RESP 18; TEMP 37.1; O2SAT 98
[2023-02-15 09:16] VITALS: BP 130/63; PULSE 55; RESP 18; TEMP 36.9; O2SAT 98
[2023-02-15 09:31] VITALS: BP 126/63; PULSE 54; RESP 18; TEMP 37.2; O2SAT 99
[2023-02-15 10:08] VITALS: BP 128/64; PULSE 56; RESP 18; TEMP 37.1; O2SAT 100
[2023-03-07] MEDS: ACETAMINOPHEN 325 MG TABLET PO (08:03)
[2023-03-07] MEDS: diphenhydrAMINE HCl CAP 25 MG CAPSULE PO (08:03)
[2023-03-07] MEDS: SODIUM CHLORIDE 0.9% IV 250 ML 30 ML IV CONT (08:04)
[2023-03-07 08:19] VITALS: BP 133/78; PULSE 57; RESP 16; TEMP 36.6; O2SAT 99
[2023-03-07 08:34] VITALS: BP 123/68; PULSE 56; RESP 16; TEMP 36.8; O2SAT 98
[2023-03-07 09:05] VITALS: BP 127/67; PULSE 53; RESP 16; TEMP 36.9; O2SAT 98
[2023-03-07 09:32] VITALS: BP 134/67; PULSE 55; RESP 16; TEMP 36.3; O2SAT 98
[2023-03-07 09:47] VITALS: BP 133/65; PULSE 52; RESP 16; TEMP 36.6; O2SAT 99
[2023-03-07 10:34] VITALS: BP 128/72; PULSE 52; RESP 16; TEMP 36.8; O2SAT 99
== END 2023-05-16 23:59 | disposition home or self-care (01) ==
LOC: ANHCPCTRAN 07:33
PROVIDERS: PCP Family Medicine; Visit Provider Internal Medicine Hematology & Oncology
DX: D64.9 Anemia, unspecified (principal)
CPT/HCPCS: 36415; 36430; 86850; 86900; 86901; A9270; J7050; P9034

== ENCOUNTER 2023-03-14 09:25 | Emergency (ER) | payer OTHER, SELFPAY ==
[2023-03-14 10:00] VITALS: BP 182/96; PULSE 67; RESP 16; TEMP 36.1; O2SAT 98
[2023-03-14 10:23] LABS: Basophils Percent Auto 1.5 % (0.2-1.2); Eosinophils Percent Auto 1.5 % (0-4.4); Hematocrit 40.1 % (37.0-47.0); Hemoglobin 13.2 g/dL (12.0-15.0); Immature Granulocyte Absolute 0.02 K/mm3 (0.00-0.031); Immature Platelet Fraction Pct 11.7 % (0.9-11.2); Lymphocytes Absolute Auto 0.28 K/mm3 (0.9-3.2); Lymphocytes Percent Auto 14.3 % (18.3-44.2); Mean Corpuscular HGB Conc 32.9 g/dl (32-36); Mean Corpuscular Hemoglobin 33.2 pg (26-34); Monocytes Absolute Auto 0.6 K/mm3 (0.1-0.6); Monocytes Percent Auto 30.6 % (2.6-8.5); Neutrophils Percent Auto 51.1 % (45.5-73.1); Red Blood Count 3.97 M/mm3 (4.2-5.4); Red Cell Distribution Width 12.9 % (11.5-14.5)
[2023-03-14 10:31] LABS: Alanine Aminotransferase 23 U/L (6-35); Albumin Level 3.9 g/dL (3.5-5.1); Alkaline Phosphatase 71 U/L (38-126); Anion Gap 6 mmol/L (8-16); Aspartate Amino Transferase 30 U/L (14-36); Bilirubin,Total 0.7 mg/dL (0.2-1.3); Blood Urea Nitrogen 14 mg/dL (7-17); Calcium 9.5 mg/dL (8.4-10.2); Carbon Dioxide 28 mmol/L (22-30); Chloride 106 mmol/L (98-107); Estimated CRCL calculation 43 ml/min; Estimated Glomerular Filt Rate > 60; Glucose 116 mg/dL (65-110); Potassium 4.1 mmol/L (3.4-5.0); Sodium 140 mmol/L (137-145)
[2023-03-14 10:33] LABS: Platelet Count Result < 3 k/mm3 (150-375)
[2023-03-14 12:02] VITALS: BP 193/99; PULSE 65; RESP 18; O2SAT 94
--- NOTE | 2023-03-14 12:02 | ED.RECABL ---
HPI - Recheck/Abnormal Lab/Rx General Chief Complaint: Recheck/Abnormal Lab/Rx Stated Complaint: low platelets at 3 Time Seen by Provider: 03/14/23 11:59 Source: patient and family ( ) Mode of arrival: ambulatory Limitations: no limitations History of Present Illness HPI narrative: patient was diagnosed with lymphoma in November 2022. She has been undergoing chemotherapy treatments. Last treatment was February 16 lead V3. Regimen is been does to me and rituximab. She was noted to have low platelets at 17 blood drawn on 03/06/2023 for which she received 2 transfusions on 03/07/2023. today, she was at an outpatient appointment with her oncologist demolition engineer Dr. Acosta and she had lab work drawn which showed platelet level less than 3. She was informed to immediately present to the emergency department. She states she is otherwise asymptomatic and denies any cough, rhinorrhea, diarrhea, fever, chest pain, shortness Of breath, or abdominal pain . At first she states she has not appreciated any rash but then notices lesion on back while she is standing to go to the bathroom. Other medications include propranolo and a statin Related Data Allergies Allergy/AdvReac Type Severity Reaction Status Date / Time Sulfa (Sulfonamide Allergy Unknown Dizziness Verified 03/14/23 12:02 Antibiotics) [facility] Past Medical History Medical History (Updated 03/15/23 @ 11:44 by Jane Meek MD) Follicular lymphoma Hyperlipidemia Hypertension Surgical History Surgical History No history of previous surgery Family History Family History Sibling Hypertension Mother Family history of Parkinson's disease Patient's mother is Father Family history of lung cancer Patient's father is Social History Social History Social History: Surrogate medical decision maker: Josh Mckeonf, spouse. Code status: Full code. Smoking status: Never smoker Second hand tobacco smoke exposure: No Alcohol intake: never Substance use: never Substance use type: does not use Lack of Transportation: No Lack of Food: Never True Current Housing: I Have Housing Concerned About Future Housing: No Difficulty Paying Gas/Electric Bills: No Difficulty Paying for Meds: No Currently Unemployed: No Education: High School Diploma/GED Difficulty w/ Childcare or Family Care: No Spiritual care concerns: No Exam Narrative: GENERAL: Well-appearing, well-nourished, and in no acute distress. HEAD: Normocephalic, atraumatic. EYES: Non injected, non icteric ENT: Nares clear, no rhinorrhea or epistaxis. NECK: Supple. CHEST: Clear to auscultation. No respiratory distress. HEART: Regular rate and rhythm. . ABDOMEN: Soft, nondistended. EXTREMITIES: Normal range of motion. No edema. SKIN: Warm, dry. Small scattered petechiae along upper and lower extremities. she does have a 2 x 2 area of clustered petechiae/purpura along left posterior mid back. NEURO: No focal deficits. Alert and oriented x3. PSYCH: Normal mood and affect. Course Vital Signs Vital signs: Vital Signs Temperature 97.0 F L 03/14/23 10:00 Pulse Rate 67 03/14/23 10:00 Respiratory Rate 16 03/14/23 10:00 Blood Pressure 182/96 H 03/14/23 10:00 Pulse Oximetry 98 03/14/23 10:00 Oxygen Delivery Room Air 03/14/23 10:00 Temperature 97.8 F 03/14/23 16:38 Pulse Rate 55 L 03/14/23 16:38 Respiratory Rate 16 03/14/23 16:38 Blood Pressure 166/84 H 03/14/23 16:38 Pulse Oximetry 100 03/14/23 16:38 Oxygen Delivery Room Air 03/14/23 10:00 MDM - Recheck/Abnormal Lab/Rx MDM Narrative Medical decision making narrative: Patient presents from demolition engineer/oncologist office where she was found to hav
[2023-03-14] MEDS: ACETAMINOPHEN 325 MG TABLET 650 MG PO (13:27)
[2023-03-14] MEDS: diphenhydrAMINE HCl CAP 25 MG CAPSULE PO (13:27)
[2023-03-14 16:08] VITALS: BP 154/110; PULSE 57; RESP 18; TEMP 37; O2SAT 99
[2023-03-14 16:22] VITALS: BP 172/93; PULSE 58; RESP 18; TEMP 36.9; O2SAT 100
[2023-03-14] MEDS: SODIUM CHLORIDE 0.9% IV 250 ML 30 ML IV CONT (16:30)
[2023-03-14 16:38] VITALS: BP 166/84; PULSE 55; RESP 16; TEMP 36.6; O2SAT 100
== END 2023-03-14 16:56 | disposition home or self-care (01) ==
PROVIDERS: Emergency Medicine; Emergency Provider Student in an Organized Health Care Education/Training Program; PCP Family Medicine
DX: D69.6 Thrombocytopenia, unspecified (principal); C82.90 Follicular lymphoma, unspecified, unspecified site; E78.5 Hyperlipidemia, unspecified; I10 Essential (primary) hypertension; Z79.60 Long term (current) use of unspecified immunomodulators and immunosuppressants
CPT/HCPCS: 36415; 36430; 80053; 85025; 85055; 86850; 86900; 86901; 99285; A9270; J7050; P9034

== ENCOUNTER 2023-03-18 08:17 | Outpatient (CLI) | payer OTHER, SELFPAY ==
[2023-03-18 08:50] LABS: Basophils Percent Auto 0.5 % (0.2-1.2); Eosinophils Percent Auto 0.5 % (0-4.4); Hematocrit 38.4 % (37.0-47.0); Hemoglobin 12.4 g/dL (12.0-15.0); Immature Granulocyte Absolute 0.04 K/mm3 (0.00-0.031); Immature Platelet Fraction Pct 6.4 % (0.9-11.2); Lymphocytes Absolute Auto 0.25 K/mm3 (0.9-3.2); Lymphocytes Percent Auto 6.5 % (18.3-44.2); Mean Corpuscular HGB Conc 32.3 g/dl (32-36); Mean Corpuscular Hemoglobin 33.2 pg (26-34); Mean Corpuscular Volume 102.7 fl (80-100); Mean Platelet Volume 12.6 fl (7.4-10.4); Monocytes Absolute Auto 0.7 K/mm3 (0.1-0.6); Neutrophils Absolute Auto 2.9 K/mm3 (1.3-6.7); Neutrophils Percent Auto 74.5 % (45.5-73.1); Platelet Count Result 53 k/mm3 (150-375); Red Blood Count 3.74 M/mm3 (4.2-5.4); Red Cell Distribution Width 13.3 % (11.5-14.5); White Blood Count 3.8 K/mm3 (4.5-10.0)
[2023-03-18 09:38] LABS: Hypochromasia 1+ (NORMAL); Platelet Estimate Decreased (Adequate); Tear Drop Cells 1+ (NORMAL)
[2023-03-18 09:39] LABS: Schistocytes None Seen (NORMAL)
== END 2023-03-18 08:18 | disposition home or self-care (01) ==
LOC: ANHLAB 08:20
PROVIDERS: PCP Family Medicine; Visit Provider Internal Medicine Hematology & Oncology
DX: C82.90 Follicular lymphoma, unspecified, unspecified site (principal)
CPT/HCPCS: 36415; 85025; 85055

== ENCOUNTER 2023-03-24 10:12 | Outpatient (RCR) | payer OTHER, SELFPAY ==
[2023-03-17 10:10] VITALS: BP 142/72; PULSE 62; RESP 18; TEMP 36.4; O2SAT 98
[2023-03-17] MEDS: ACETAMINOPHEN 325 MG TABLET PO (10:17)
[2023-03-17] MEDS: diphenhydrAMINE HCl CAP 25 MG CAPSULE PO (10:17)
[2023-03-17 10:20] VITALS: BMI 21.4
[2023-03-17] MEDS: SODIUM CHLORIDE 0.9% IV 250 ML 30 ML IV CONT (10:26)
[2023-03-17 11:45] VITALS: BP 142/72; PULSE 62; RESP 18; TEMP 36.4; O2SAT 98
[2023-03-17 12:00] VITALS: BP 150/69; PULSE 55; RESP 17; TEMP 37.1; O2SAT 98
[2023-03-17 12:15] VITALS: BP 154/70; PULSE 56; RESP 18; TEMP 37.3; O2SAT 100
[2023-03-20] MEDS: diphenhydrAMINE HCl CAP 25 MG CAPSULE PO (12:43)
[2023-03-20] MEDS: ACETAMINOPHEN 325 MG TABLET PO (12:43)
[2023-03-20] MEDS: SODIUM CHLORIDE 0.9% IV 250 ML 30 ML IV CONT (12:43)
[2023-03-20 13:00] VITALS: BP 128/71; PULSE 56; RESP 16; TEMP 36.6; O2SAT 97
[2023-03-20 13:15] VITALS: BP 135/71; PULSE 52; RESP 16; TEMP 36.5; O2SAT 97
[2023-03-20 13:45] VITALS: BP 151/68; PULSE 46; RESP 16; TEMP 36.3; O2SAT 99
[2023-03-20 14:15] VITALS: BP 132/62; PULSE 48; RESP 16; TEMP 36.4; O2SAT 100
[2023-03-20 14:18] VITALS: BP 132/62; PULSE 48; RESP 16; TEMP 36.4; O2SAT 100
[2023-03-24 10:30] VITALS: BP 165/82; PULSE 51; RESP 20; TEMP 36.6; O2SAT 99
[2023-03-24 10:45] VITALS: TEMP 36.6
[2023-03-24] MEDS: diphenhydrAMINE HCl CAP 25 MG CAPSULE PO (10:45)
[2023-03-24] MEDS: ACETAMINOPHEN 325 MG TABLET PO (10:45)
[2023-03-24 11:27] VITALS: BP 165/82; PULSE 51; RESP 20; TEMP 36.6; O2SAT 99
[2023-03-24 11:30] VITALS: BP 174/76; PULSE 52; RESP 20; TEMP 36.6; O2SAT 97
[2023-03-24 11:42] VITALS: BP 171/74; PULSE 52; RESP 20; TEMP 36.7; O2SAT 99
[2023-03-24 11:52] VITALS: BP 161/73; PULSE 52; RESP 20; TEMP 36.8; O2SAT 98
== END 2023-03-24 11:30 | disposition home or self-care (01) ==
LOC: ANHCPCTRAN 10:12
PROVIDERS: PCP Family Medicine; Visit Provider Internal Medicine Hematology & Oncology
DX: C82.90 Follicular lymphoma, unspecified, unspecified site (principal)
CPT/HCPCS: 36415; 36430; 85025; 85055; 86900; 86901; A9270; J7050; P9034

== ENCOUNTER 2023-04-13 07:30 | Outpatient (RCR) | payer OTHER, SELFPAY ==
[2023-03-30] VITALS (7 sets, daily range): BP systolic 183–209; BP diastolic 84–108; PULSE 52–97; RESP 12–16; TEMP 36.1–36.9; O2SAT 97
[2023-03-30] MEDS: diphenhydrAMINE HCl CAP 25 MG CAPSULE PO (10:49)
[2023-03-30] MEDS: ACETAMINOPHEN 325 MG TABLET PO (10:49)
[2023-03-30] MEDS: SODIUM CHLORIDE 0.9% IV 250 ML 30 ML IV CONT (10:50)
[2023-04-07] MEDS: diphenhydrAMINE HCl CAP 25 MG CAPSULE PO (12:12)
[2023-04-07] MEDS: SODIUM CHLORIDE 0.9% IV 250 ML 30 ML IV CONT (12:12)
[2023-04-07] MEDS: ACETAMINOPHEN 325 MG TABLET PO (12:12)
[2023-04-07 12:13] VITALS: BP 154/78; PULSE 71; RESP 18; TEMP 37; O2SAT 99
[2023-04-07 12:30] VITALS: BP 145/73; PULSE 58; RESP 18; TEMP 36.6; O2SAT 100
[2023-04-07 12:45] VITALS: BP 156/76; PULSE 57; RESP 18; TEMP 36.6; O2SAT 100
[2023-04-07 13:16] VITALS: BP 151/71; PULSE 52; RESP 18; TEMP 36.7; O2SAT 99
[2023-04-07 13:33] VITALS: BP 161/74; PULSE 51; RESP 16; TEMP 36.3; O2SAT 99
[2023-04-07 14:20] VITALS: BP 174/86; PULSE 51; RESP 18; TEMP 36.7; O2SAT 100
[2023-04-13] MEDS: ACETAMINOPHEN 325 MG TABLET PO (10:58)
[2023-04-13] MEDS: SODIUM CHLORIDE 0.9% IV 250 ML 30 ML IV CONT (10:58)
[2023-04-13] MEDS: diphenhydrAMINE HCl CAP 25 MG CAPSULE PO (10:58)
[2023-04-13 11:04] VITALS: BP 118/76; PULSE 67; RESP 16; TEMP 36.7; O2SAT 96
[2023-04-13 11:20] VITALS: BP 132/66; PULSE 62; RESP 16; TEMP 36.7; O2SAT 98
[2023-04-13 11:50] VITALS: BP 123/77; PULSE 70; RESP 16; TEMP 36.6; O2SAT 98
[2023-04-13 12:02] VITALS: BP 133/76; PULSE 72; RESP 16; TEMP 36.7; O2SAT 98
[2023-04-13 12:17] VITALS: BP 141/80; PULSE 66; RESP 16; TEMP 36.7; O2SAT 100
[2023-04-13 12:47] VITALS: BP 129/68; PULSE 63; RESP 16; TEMP 36.6; O2SAT 99
== END 2023-04-13 09:00 | disposition home or self-care (01) ==
LOC: ANHCPCTRAN 07:30
PROVIDERS: PCP Family Medicine; Visit Provider Internal Medicine Hematology & Oncology
DX: C82.90 Follicular lymphoma, unspecified, unspecified site (principal)
CPT/HCPCS: 36415; 36430; 80047; 80053; 85025; 85055; 86900; 86901; A9270; J7050; P9034

== ENCOUNTER 2023-04-25 13:00 | Outpatient (RCR) | payer OTHER, SELFPAY ==
[2023-04-19 13:33] VITALS: TEMP 37
[2023-04-19] MEDS: ACETAMINOPHEN 325 MG TABLET PO (13:33)
[2023-04-19] MEDS: SODIUM CHLORIDE 0.9% IV 250 ML 30 ML IV CONT (13:33)
[2023-04-19] MEDS: diphenhydrAMINE HCl CAP 25 MG CAPSULE PO (13:34)
[2023-04-19 13:42] VITALS: BP 138/82; PULSE 61; RESP 16; TEMP 36.5; O2SAT 99
[2023-04-19 13:57] VITALS: BP 124/70; PULSE 60; RESP 16; TEMP 37.2; O2SAT 100
[2023-04-19 13:58] VITALS: BP 125/69; PULSE 57; RESP 16; TEMP 37.1; O2SAT 99
--- NOTE | 2023-04-19 14:06 | PC.NURSE ---
1u Platelet transfusion complete. Discharge instructions talked over with patient and . Pt discharged at 1405 via privately owned vehicle.
[2023-04-25] MEDS: ACETAMINOPHEN 325 MG TABLET PO (13:16)
[2023-04-25] MEDS: diphenhydrAMINE HCl CAP 25 MG CAPSULE PO (13:16)
[2023-04-25] MEDS: SODIUM CHLORIDE 0.9% IV 250 ML 30 ML IV CONT (13:17)
[2023-04-25 13:25] VITALS: BP 111/68; PULSE 62; RESP 16; TEMP 36.6; O2SAT 96
[2023-04-25 13:40] VITALS: BP 111/64; PULSE 63; RESP 16; TEMP 36.8; O2SAT 96
[2023-04-25 13:50] VITALS: BP 104/63; PULSE 58; RESP 16; TEMP 36.8; O2SAT 97
== END 2023-07-18 23:59 | disposition home or self-care (01) ==
LOC: ANHCPCTRAN 13:00
PROVIDERS: PCP Family Medicine; Visit Provider Internal Medicine Hematology & Oncology
DX: C82.90 Follicular lymphoma, unspecified, unspecified site (principal)
CPT/HCPCS: 36415; 36430; 85025; 85055; 86850; 86900; 86901; A9270; J7050; P9034

== ENCOUNTER 2023-10-16 10:50 | Outpatient (RCR) | payer OTHER, SELFPAY ==
[2023-09-20] VITALS (7 sets, daily range): BP systolic 126–144; BP diastolic 55–74; PULSE 48–54; RESP 14–20; TEMP 36.4–36.8; O2SAT 97–100
[2023-09-20] MEDS: ACETAMINOPHEN 325 MG TABLET PO (11:42)
[2023-09-20] MEDS: SODIUM CHLORIDE 0.9% IV 250 ML 30 ML IV CONT (11:42)
[2023-09-20] MEDS: diphenhydrAMINE HCl CAP 25 MG CAPSULE PO (11:43)
[2023-10-16] VITALS (7 sets, daily range): BP systolic 125–158; BP diastolic 62–70; PULSE 45–60; RESP 16–22; TEMP 36.3–36.7; O2SAT 98–100
[2023-10-16] MEDS: ACETAMINOPHEN 325 MG TABLET PO (13:17)
[2023-10-16] MEDS: diphenhydrAMINE HCl CAP 25 MG CAPSULE PO (13:18)
--- NOTE | 2023-10-16 15:16 | PC.NURSE ---
Pt tolerated transfusion platelets x 2 units. No side effects. Instructions given and understanding verbalized. IV site d/c intact with dry drsg applied.
== END 2023-12-19 23:59 | disposition home or self-care (01) ==
LOC: ANHCPCTRAN 10:50
PROVIDERS: PCP Family Medicine; Visit Provider Internal Medicine Hematology & Oncology
DX: C82.90 Follicular lymphoma, unspecified, unspecified site (principal)
CPT/HCPCS: 36415; 36430; 85025; 85055; 86900; 86901; P9036; A9270; J7050; P9034

== ENCOUNTER 2023-11-15 11:15 | Outpatient (RCR) | payer OTHER, SELFPAY ==
[2023-11-15] VITALS (10 sets, daily range): BP systolic 122–171; BP diastolic 67–85; PULSE 48–63; RESP 14–20; TEMP 36.3–37.2; O2SAT 97–100
[2023-11-15] MEDS: ACETAMINOPHEN 325 MG TABLET PO (11:45)
[2023-11-15] MEDS: diphenhydrAMINE HCl CAP 25 MG CAPSULE PO (11:45)
[2023-11-15] MEDS: SODIUM CHLORIDE 0.9% IV 250 ML 30 ML IV CONT (12:00)
--- NOTE | 2023-11-15 13:35 | PC.NURSE ---
1335-Pt informs nurse that she is having itching on palms of hands and bottoms of feet. Areas of concern to Pt denies swelling of lips or tongue or resp distress. Platelet Unit #2 stopped at this time. 1350-Dr. Acosta notified of itching via his nurse Rossy (phone call). informed that transfusion has been stopped. MD states pt may be d/c home at this time. Pt informed of MD decision. 1405-Dr. Acosta notified via his nurse Rossy (phone call) that pt now has rash on abd, back, bilat arms and legs. Pt denies any other s/s transfusion reaction. Itching continues. [facility] and [facility] notified. 1408-Methylprednisone 125 mg IV per telepone orders. Pt made aware that she will remain in depart to be montiored x 1 hour 1432-Transfusion Reaction labs/urine collected. Platelet units #1 & 2 taken to lab by paper handler 1450-Pt remains stable. Continuous telemetry and vital signs q 15 mins
[2023-11-15] MEDS: methylPREDNISolone SOD SUCC 125 MG VIAL IV PUSH (14:08)
--- NOTE | 2023-11-15 15:20 | PC.NURSE ---
1520-Dr. Acosta updated on pt condition. Discharge orders rec'd and communicated to pt and . Pt remains stable.
--- NOTE | 2023-11-15 15:34 | PC.NURSE ---
Pt d/c ambulatory with . Stable without resp or cardiac distress. Fine red rash and itching continue. Pt informed of MD instructions for home care. IV d/c intact.
[2023-11-15 15:50] LABS: TXRXN Occult Blood Urine Immed Negative (Negative)
[2023-11-15 15:51] LABS: TXRXN RBC Urine Immediate 0-2 /hpf (0-2)
== END 2024-02-13 23:59 | disposition home or self-care (01) ==
LOC: ANHCPCTRAN 11:15
PROVIDERS: PCP Family Medicine; Visit Provider Internal Medicine Hematology & Oncology
DX: C82.90 Follicular lymphoma, unspecified, unspecified site (principal)
CPT/HCPCS: 36415; 36430; 81001; 82247; 86880; 86900; 86901; A9270; J2919; J7050; P9034